=== PATIENT | female | born 1935 | race Caucasian/White ===

== ENCOUNTER 2018-01-09 03:32 | Observation (INO) | payer MEDICARE ==
[2018-01-09] MEDS ORDERED: NITROGLYCERIN SL TABS 0.4 MG TAB SUBLINGUAL PRN (03:35)
[2018-01-09] MEDS ORDERED: HYDROcodone/APAP 5-325MG 1 EACH TAB PO PRN (03:38)
[2018-01-09] MEDS ORDERED: HEPARIN SOD,PORK IN 0.45% NACL 25,000 UNIT in 0.45% NACL 1 500ML.BAG IV SCH (03:45)
[2018-01-09] MEDS ORDERED: NITROGLYCERIN OINT 1 INCH/GM PACKET TOPICAL STA (03:48)
[2018-01-09] MEDS: SODIUM CHLORIDE 0.9% 1,000 ML IV SCH ×3 (03:53→22:16)
[2018-01-09 04:16] LABS: Creatine Kinase 38 U/L (30-135)
[2018-01-09 04:29] LABS: Creatine Kinase MB 0.8 ng/mL (0.0-2.4); Troponin I <0.012 ng/mL (0.000-0.034)
--- NOTE | 2018-01-09 04:38 | ED ---
Chest Pain HPI - General Chief Complaint: Chest Pain Stated Complaint: chest pain Time Seen by Provider: 01/09/18 03:34 Source: patient Mode of arrival: EMS Limitations: no limitations - History of Present Illness Initial Comments: This patient is an 82-year-old woman with history of previous one-vessel CABG, who had gone to [facility] when she developed chest pain. She states pain was substernal and radiated to her back. She described as an aching. The pain was constant though it has resolved in the time she was at the other hospital. She also had some accompanying diaphoresis. While the patient was at the other hospital they contacted the cardiology service who requested that the patient be transferred here for admission and consideration of further evaluation. Review of the patient's labs reveal that she had 2 negative troponins while at the other hospital. MD Complaint: chest pain -: hour(s) Onset: during rest Pain Location: substernal Pain Radiation: back Severity: moderate Quality: tightness Consistency: now resolved Worsens With: nothing Anginal Symptoms: diaphoresis Treatments Prior to Arrival: aspirin, nitroglycerin, oxygen - Related Data Home Medications Medication Instructions Recorded Confirmed L.acidoph/B.long/L.plant/B.lac 1 each PO DAILY 01/23/15 01/24/15 [Probiotic Acidophilus Beads] Levothyroxine Sodium [Levoxyl] 75 mcg PO DAILY 01/23/15 01/24/15 Levothyroxine Sodium [Levoxyl] 88 mcg PO DAILY 01/23/15 01/24/15 Magnesium Oxide [Mag-Ox] 250 mg PO DAILY 01/23/15 01/24/15 Turmeric 400 mg PO DAILY 01/23/15 01/24/15 Calcium Carbonate/Vitamin D3 1 each PO DAILY 01/24/15 01/24/15 [Calcium 600-Vit D3 400 Tablet] Cholecalciferol [Vitamin D3] 1,200 unit PO DAILY 01/24/15 01/24/15 Cholecalciferol [Vitamin D3] 2,000 unit PO DAILY 01/24/15 01/24/15 Cyanocobalamin [Vitamin B-12] 500 mcg PO DAILY 01/24/15 01/24/15 Dicyclomine [Bentyl] 10 mg PO HS 01/24/15 01/24/15 Garlic 1 tab PO BID 01/24/15 01/24/15 Ubidecarenone [Co Q-10] 100 mg PO DAILY 01/24/15 01/24/15 Previous Rx's Medication Instructions Recorded Aspirin EC [Ecotrin Low Dose] 162 mg PO DAILY #60 tablet. 01/28/15 Clopidogrel [Plavix] 75 mg PO DAILY #30 tab 01/28/15 HYDROcodone/APAP 5-325MG [[place] 1 each PO Q4HR PRN #30 tab 01/28/15 5-325] Levothyroxine Sodium [Synthroid] 75 mcg PO Q48H tab 01/28/15 Levothyroxine Sodium [Synthroid] 88 mcg PO Q48H tab 01/28/15 Metoprolol Tartrate [Lopressor] 25 mg PO BID #60 tab 01/28/15 Rosuvastatin Calcium [Crestor] 2.5 mg PO DAILY #30 tablet 01/28/15 Allergies Allergy/AdvReac Type Severity Reaction Status Date / Time meperidine HCl [From Demerol] Allergy Severe Anaphylaxis Verified 01/09/18 03:44 amiodarone Allergy Hallucinati Verified 01/09/18 03:47 ons codeine Allergy Unknown Verified 01/09/18 03:44 metoprolol Allergy Unknown Verified 01/09/18 03:47 omeprazole [From Prilosec] Allergy Abdominal Verified 01/09/18 03:47 Pain Penicillins Allergy Unknown Verified 01/09/18 03:44 pitavastatin [From Livalo] Allergy Abdominal Verified 01/09/18 03:47 Pain propranolol HCl Allergy Unknown Verified 01/09/18 03:44 [From Inderal LA] rosuvastatin [From Crestor] Allergy Abdominal Verified 01/09/18 03:47 Pain tetracycline Allergy Unknown Verified 01/09/18 03:44 Review of Systems ROS Statement: Those systems with pertinent positive or pertinent negative responses have been documented in the HPI. ROS Other: All systems not noted in ROS Statement are negative. Constitutional: Denies: fever, chills Respiratory: Denies: cough, dyspnea Cardiovascular: Reports: chest pain. Denies: palpitations, orthopnea, edema, syncope Gastrointestinal: Denies: abdominal pain, nausea, vomiting, diarrhea Musculoskeletal: Denies: back pain Skin: Denies: rash Neurological: Denies: headache, weakness, numbness EKG Findings - EKG Results: EKG: interpreted by ERMD, sinus rhythm, normal axis, normal QRS - Blocks, [place], Hypertrophy, ST Abn: Repolarization changes or abnormalities: ST or T wave suggestive of ischemia ( Anterior to inversions) Past Medical History Past Medical History: Chest Pain / Angina, GERD/Reflux, Hyperlipidemia, Musculoskeletal Disorder, Osteoarthritis (OA), Thyroid Disorder Additional Past Medical History / Comment(s): IBS, BENIGN POSITIONAL VERTIGO, ARTHRITIS History of Any Multi-Drug Resistant Organisms: None Reported Past Surgical History: No Surgical Hx Reported Additional Past Surgical History / Comment(s): Bilateral breast biopsy 2 in the left side and one on the right side there were benign. Past Anesthesia/Blood Transfusion Reactions: No Reported Reaction Past Psychological History: No Psychological Hx Reported Smoking Status: Never smoker Past Alcohol Use History: Occasional Past Drug Use History: None Reported - Past Family History Father Family Medical History: Coronary Artery Disease (CAD) (Father at age of 65 from myocardial infarction), Myocardial Infarction ([place]) Mother Family Medical History: Cancer (Mother at age of 85 from uterine cancer) Brother(s) Family Medical History: Coronary Artery Disease (CAD), Myocardial Infarction ([place] ) (Patient has 2 brothers with coronary artery disease one of them is a plastic surgeon the other one is an ENT surgeon.) Sister(s) Family Medical History: No Reported History (One sister no major medical problems) General Exam Limitations: no limitations General appearance: alert, in no apparent distress Head exam: Present: atraumatic, normocephalic Eye exam: Present: normal appearance. Absent: scleral icterus, conjunctival injection ENT exam: Present: normal oropharynx Neck exam: Present: normal inspection Respiratory exam: Present: normal lung sounds bilaterally. Absent: respiratory distress, wheezes, rales, rhonchi, stridor GI/Abdominal exam: Present: soft. Absent: distended, tenderness, guarding, rebound, rigid, mass Extremities exam: Present: normal inspection, normal capillary refill. Absent: pedal edema, calf tenderness Back exam: Present: normal inspection. Absent: CVA tenderness (R), CVA tenderness (L) Neurological exam: Present: alert Skin exam: Present: warm, dry, intact, normal color. Absent: rash Course Vital Signs 01/09/18 01/09/18 03:39 04:11 Temperature 98.8 F Pulse Rate 90 Pulse Rate [ 70 [employer] ] Respiratory 18 Rate Blood Pressure 175/90 O2 Sat by Pulse 99 Oximetry Disposition Clinical Impression: Acute coronary syndrome Disposition: ADMITTED IP TO THIS HOSP Condition: Fair Referrals: Brandi Sebastian MD [Primary Care Provider] - 1-2 days
[2018-01-09] MEDS ORDERED: HEPARIN SODIUM,PORCINE 5,000 UNIT/ML 1 ML VIAL IV PRN (06:07)
[2018-01-09] MEDS ORDERED: LEVOTHYROXINE 75 MCG TAB PO SCH (08:45)
[2018-01-09 09:24] LABS: Basophils % (A) 1 %; Eosinophils % (A) 0 %; HCT 34.1 % (34.0-46.0); HGB 11.5 gm/dL (11.4-16.0); Lymphocytes % (A) 22 %; MCH 31.5 pg (25.0-35.0); MCHC 33.6 g/dL (31.0-37.0); MCV 93.5 fL (80.0-100.0); Mean Platelet Volume 7.7; Monocytes # (A) 0.2 k/uL (0-1.0); Monocytes % (A) 5 %; Neutrophils # (A) 3.2 k/uL (1.3-7.7); Neutrophils % (A) 70 %; Platelet Count 259 k/uL (150-450); RBC 3.65 m/uL (3.80-5.40); RDW 13.3 % (11.5-15.5); WBC 4.6 k/uL (3.8-10.6)
[2018-01-09 09:46] LABS: Creatine Kinase 39 U/L (30-135)
[2018-01-09 09:58] LABS: Creatine Kinase MB 0.8 ng/mL (0.0-2.4); Troponin I <0.012 ng/mL (0.000-0.034)
[2018-01-09 10:01] LABS: Calcium 9.2 mg/dL (8.4-10.2); Potassium 3.9 mmol/L (3.5-5.1)
[2018-01-09] MEDS ORDERED: ACETAMINOPHEN TAB 325 MG TAB PO PRN (10:14)
[2018-01-09] MEDS ORDERED: KETOROLAC 30 MG/ML 1 ML VIAL IVP STA (10:28)
--- NOTE | 2018-01-09 11:16 | P.HPIM ---
History of Present Illness H&P Date: 01/09/18 Chief Complaint: Chest pain This is an 82-year-old female patient of Dr. Sebastian with a previous medical history significant for hyperlipidemia, osteoarthritis, non-ST elevated myocardial infarction in January 2015 status post SHABAZZ to LAD with Dr. Granados, hypothyroidism, irritable bowel syndrome, gastritis. Patient states that she will develop chest pain on Wednesday went to [facility] and was worked up and then discharged home. Yesterday, she started having sweats and she was told if she had sweats to go into the hospital. She was at rest watching TV when the sweats started. She presented to [facility]. She also had left-sided chest pain that went to both arms. Her clamminess went away. She also had occasional pain in the back on the left side. She denies any palpitations. Patient is pain-free at this time and is not sure what caused her pain to go away. [employer] was contacted and patient was transferred to [facility] emergency center. She had 2 negative troponins drawn at [facility]. EKG was a sinus rhythm with T-wave changes. Repeat troponins have been negative 2 here. Patient was started on a full aspirin, heparin drip, resumed on statin and placed on the observation unit and cardiology consult requested. Patient is complaining of a headache over her whole head including her ears. We will order 1 dose of Toradol as patient is nothing by mouth. Review of Systems All systems: negative Constitutional: Reports sweats, Denies anorexia, Denies chills, Denies fever, Denies poor appetite, Denies weight loss Eyes: denies blurred vision, denies pain Ears, nose, mouth and throat: Denies headache, Denies sore throat Cardiovascular: Reports chest pain, Denies edema, Denies irregular heart beat, Denies leg edema, Denies lightheadedness, Denies palpitations, Denies shortness of breath, Denies syncope Respiratory: Denies cough, Denies cough with sputum, Denies dyspnea, Denies excessive sputum, Denies hemoptysis, Denies home oxygen, Denies wheezing Gastrointestinal: Denies abdominal pain, Denies diarrhea, Denies loss of appetite, Denies melena, Denies nausea, Denies vomiting Genitourinary: Denies dysuria, Denies hematuria Musculoskeletal: Denies myalgias Integumentary: Denies pruritus, Denies rash Neurological: Denies numbness, Denies weakness Psychiatric: Denies anxiety, Denies depression Endocrine: Denies fatigue, Denies weight change Past Medical History Past Medical History: Chest Pain / Angina, GERD/Reflux, Hyperlipidemia, Musculoskeletal Disorder, Osteoarthritis (OA), Thyroid Disorder Additional Past Medical History / Comment(s): IBS, BENIGN POSITIONAL VERTIGO, hypothyroidism, gastritis, coronary artery disease status post CABG SHABAZZ to LAD. History of Any Multi-Drug Resistant Organisms: None Reported Past Surgical History: Coronary Bypass/CABG, Heart Catheterization Additional Past Surgical History / Comment(s): Bilateral breast biopsy 2 in the left side and one on the right side there were benign., CARDIAC CATH AND CABG IN 01/2015, egd Past Anesthesia/Blood Transfusion Reactions: No Reported Reaction Past Psychological History: No Psychological Hx Reported Smoking Status: Never smoker Past Alcohol Use History: Occasional Additional Past Alcohol Use History / Comment(s): Patient is a lifelong nonsmoker. No illicit drug use. She drinks a glass of wine wine a couple nights a week. Past Drug Use History: None Reported - Past Family History Father Family Medical History: Coronary Artery Disease (CAD), Myocardial Infarction ([place] ) Additional Family Medical History / Comment(s): Father at age 65 from a myocardial infarction. Mother Family Medical History: Cancer Additional Family Medical History / Comment(s): Mother at age 85 from uterine cancer. Brother(s) Family Medical History: Coronary Artery Disease (CAD), Myocardial Infarction ([place] ) Additional Family Medical History / Comment(s): Patient has 2 brothers and one has coronary artery disease and one of them is a plastic surgeon. The other one is an ENT surgeon. Sister(s) Family Medical History: No Reported History Additional Family Medical History / Comment(s): She has one sister with no major medical problems. Medications and Allergies Home Medications Medication Instructions Recorded Confirmed Type L.acidoph/B.long/L.plant/B.lac 1 each PO AC-SUPPER 01/23/15 01/09/18 History [Probiotic Acidophilus Beads] Levothyroxine Sodium [Levoxyl] 75 mcg PO SUTUTHSA 01/23/15 01/09/18 History Magnesium Oxide [Mag-Ox] 250 mg PO AC-SUPPER 01/23/15 01/09/18 History Turmeric 400 mg PO MOWEFR 01/23/15 01/09/18 History Calcium Carbonate/Vitamin D3 1 each PO BID-W/MEALS 01/24/15 01/09/18 History [Calcium 600-Vit D3 400 Tablet] Cholecalciferol [Vitamin D3] 1,000 unit PO AC-BRKFST 01/24/15 01/09/18 History Cholecalciferol [Vitamin D3] 800 unit PO AC-LUNCH 01/24/15 01/09/18 History Cyanocobalamin [Vitamin B-12] 1,000 mcg PO SUMOWEFR 01/24/15 01/09/18 History Garlic 600 mg PO BID 01/24/15 01/09/18 History Ubidecarenone [Co Q-10] 100 mg PO AC-LUNCH 01/24/15 01/09/18 History Acetaminophen Tab [Tylenol Tab] 325 - 650 mg PO Q4H PRN 01/09/18 01/09/18 History Aspirin EC [Ecotrin Low Dose] 88 mg PO BID 01/09/18 01/09/18 History Biotin 300 mcg PO AC-BID 01/09/18 01/09/18 History Cholecalciferol [Vitamin D3] 400 unit PO AC-SUPPER 01/09/18 01/09/18 History Docusate [Colace] 100 mg PO DAILY 01/09/18 01/09/18 History Levothyroxine Sodium [Synthroid] 50 mcg PO MOWEFR 01/09/18 01/09/18 History Loperamide HCl [Imodium A-D] 2 mg PO DAILY PRN 01/09/18 01/09/18 History Rosuvastatin Calcium [Crestor] 5 mg PO SUMOWEFR 01/09/18 01/09/18 History Vitamin C/Biotin [Hair, Skin and 1 tab PO DAILY 01/09/18 01/09/18 History Nails] Allergies Allergy/AdvReac Type Severity Reaction Status Date / Time meperidine HCl [From Demerol] Allergy Severe Anaphylaxis Verified 01/09/18 10:59 amiodarone Allergy Hallucinati Verified 01/09/18 10:59 ons codeine Allergy Unknown Verified 01/09/18 10:59 lansoprazole Allergy Unknown Verified 01/09/18 10:59 metoprolol Allergy Unknown Verified 01/09/18 10:59 omeprazole [From Prilosec] Allergy Abdominal Verified 01/09/18 10:59 Pain Penicillins Allergy Unknown Verified 01/09/18 10:59 pitavastatin [From Livalo] Allergy Abdominal Verified 01/09/18 10:59 Pain propranolol HCl Allergy Unknown Verified 01/09/18 10:59 [From Inderal LA] rosuvastatin [From Crestor] Allergy Abdominal Verified 01/09/18 10:59 Pain sucralfate Allergy Unknown Verified 01/09/18 10:59 tetracycline Allergy Unknown Verified 01/09/18 10:59 Physical Exam Vitals: Vital Signs Temp Pulse Pulse Resp BP Pulse Ox 01/09/18 07:51 18 01/09/18 05:42 18 01/09/18 04:42 98.1 F 68 15 134/68 100 01/09/18 04:38 70 18 134/43 100 01/09/18 04:11 70 01/09/18 03:39 98.8 F 90 18 175/90 99 Intake and Output 01/08/18 01/09/18 01/09/18 22:59 06:59 14:59 Other: Voiding Method Toilet Toilet Weight 45.359 kg Patient is sitting up in bed in no apparent distress. HEENT: Head is atraumatic, normocephalic, pupils were equal round sclera nonicteric conjunctiva not pale mucous membranes of the mouth are somewhat dry. Neck: Supple, no JVP, no lymphadenopathy, no thyromegaly. Chest: Clear to auscultation bilaterally there is no crackles or wheezes no chest wall tenderness no intercostal retraction. Heart: First heart sound is normal, second heart sound is normal, there is systolic ejection murmur 2/6 located at the left sternal border. Abdomen: Soft, nontender, positive bowel sounds, no hepatosplenomegaly. Extremities: No edema , no calf tenderness, dorsalis pedis +2 bilaterally. Neurologic examination: Awake alert and oriented 3, cranial nerves II-12 appear to be grossly intact. Deep tendon reflexes were normal, Babinski's were flexor bilaterally. Muscle power 5 out of 5 in upper and lower extremities bilaterally. Results CBC & Chem 7: 01/09/18 09:10 01/09/18 09:10 Thrombosis Risk Factor Assmnt - DVT/VTE Prophylaxis DVT/VTE Prophylaxis: Pharmacologic Prophylaxis ordered - Choose All That Apply Each Factor Represents 1 point: Hx of IBD Other Risk Factors: Yes Each Risk Factor Represents 3 Points: Age 75 years or older Other congenital or acquired thrombophilia - If yes, enter type in comment: No Thrombosis Risk Factor Assessment Total Risk Factor Score: 4 Thrombosis Risk Factor Assessment Level: Moderate Risk Assessment and Plan Plan: 1. Chest pain in a patient with previous non-ST elevated myocardial infarction with CABG 1 vessel. Currently all troponins of been negative. Patient is on heparin drip, full strength aspirin, Lipitor. Consult in place with cardiology. Patient is nothing by mouth for any procedure. 2. Hyperlipidemia. Continue Lipitor. 3. History of gastritis. Protonix. 4. Osteoarthritis mild in both hands. 5. Irritable bowel syndrome stable at this time. 6. Benign positional proximal vertigo in remission. 7. Hypothyroidism. Continue current dose of Synthroidy. 8. GI prophylaxis will continue with current PPI. 9. DVT prophylaxis. Patient is on heparin Patient placed as observation status Discharge plan: Return home Impression and plan of care have been directed as dictated by the signing physician. Shelby Pearson nurse practitioner acting as scribe for signing physician.
--- NOTE | 2018-01-09 11:20 | P.CRDCN ---
History of Present Illness Consult date: 01/09/18 Chief complaint: Chest pain History of present illness: This is a pleasant 82-year-old female patient with a past medical history significant for coronary artery disease and status post coronary artery that is grafting with single vessel bypass with SHABAZZ to LAD was performed in 2014, as well as dyslipidemia, presented to the hospital complaining of chest discomfort. The patient presented to the emergency room at [facility] about a week ago with a chest discomfort and she was treated medically and was discharged home. She came back again to the emergency room over there with a chest discomfort. She describes the discomfort as a dull kind of discomfort in the mid of the chest without any radiation to the arm or neck or shoulders but it was associated with sweating. She stated that the discomfort is not exertional. Its oh variable duration last from a few minutes to about half an hour. The EKG showed sinus rhythm with T-wave inversion throughout the chest leads but these changes seems to be chronic compared to an EKG was performed in 2014. The cardiac enzymes were checked and came in to be unremarkable. The patient continues to be pain-free while she is in the hospital. Past Medical History Past Medical History: Chest Pain / Angina, GERD/Reflux, Hyperlipidemia, Musculoskeletal Disorder, Osteoarthritis (OA), Thyroid Disorder Additional Past Medical History / Comment(s): IBS, BENIGN POSITIONAL VERTIGO, hypothyroidism, gastritis, coronary artery disease status post CABG SHABAZZ to LAD. History of Any Multi-Drug Resistant Organisms: None Reported Past Surgical History: Coronary Bypass/CABG, Heart Catheterization Additional Past Surgical History / Comment(s): Bilateral breast biopsy 2 in the left side and one on the right side there were benign., CARDIAC CATH AND CABG IN 01/2015, egd Past Anesthesia/Blood Transfusion Reactions: No Reported Reaction Past Psychological History: No Psychological Hx Reported Smoking Status: Never smoker Past Alcohol Use History: Occasional Additional Past Alcohol Use History / Comment(s): Patient is a lifelong nonsmoker. No illicit drug use. She drinks a glass of wine wine a couple nights a week. Past Drug Use History: None Reported - Past Family History Father Family Medical History: Coronary Artery Disease (CAD), Myocardial Infarction ([place] ) Additional Family Medical History / Comment(s): Father at age 65 from a myocardial infarction. Mother Family Medical History: Cancer Additional Family Medical History / Comment(s): Mother at age 85 from uterine cancer. Brother(s) Family Medical History: Coronary Artery Disease (CAD), Myocardial Infarction (LA ) Additional Family Medical History / Comment(s): Patient has 2 brothers and one has coronary artery disease and one of them is a plastic surgeon. The other one is an ENT surgeon. Sister(s) Family Medical History: No Reported History Additional Family Medical History / Comment(s): She has one sister with no major medical problems. Medications and Allergies Home Medications Medication Instructions Recorded Confirmed Type L.acidoph/B.long/L.plant/B.lac 1 cap PO AC-SUPPER 01/23/15 01/09/18 History [Probiotic Acidophilus Beads] Levothyroxine Sodium [Levoxyl] 75 mcg PO SUTUTHSA 01/23/15 01/09/18 History Magnesium Oxide [Mag-Ox] 250 mg PO AC-SUPPER 01/23/15 01/09/18 History Turmeric 400 mg PO MOWEFR 01/23/15 01/09/18 History Calcium Carbonate/Vitamin D3 1 tab PO BID-W/MEALS 01/24/15 01/09/18 History [Calcium 600-Vit D3 400 Tablet] Cholecalciferol [Vitamin D3] 1,000 unit PO AC-BRKFST 01/24/15 01/09/18 History Cholecalciferol [Vitamin D3] 800 unit PO AC-LUNCH 01/24/15 01/09/18 History Cyanocobalamin [Vitamin B-12] 1,000 mcg PO SUMOWEFR 01/24/15 01/09/18 History Garlic 1 tab PO BID 01/24/15 01/09/18 History Ubidecarenone [Co Q-10] 100 mg PO AC-LUNCH 01/24/15 01/09/18 History Acetaminophen Tab [Tylenol Tab] 325 - 650 mg PO Q4H PRN 01/09/18 01/09/18 History Aspirin EC [Ecotrin Low Dose] 81 mg PO BID 01/09/18 01/09/18 History Biotin 300 mcg PO AC-BID 01/09/18 01/09/18 History Cholecalciferol [Vitamin D3] 400 unit PO AC-SUPPER 01/09/18 01/09/18 History Docusate [Colace] 100 mg PO DAILY 01/09/18 01/09/18 History Levothyroxine Sodium [Synthroid] 50 mcg PO MOWEFR 01/09/18 01/09/18 History Loperamide HCl [Imodium A-D] 2 mg PO DAILY PRN 01/09/18 01/09/18 History Rosuvastatin Calcium [Crestor] 5 mg PO SUMOWEFR 01/09/18 01/09/18 History Vitamin C/Biotin [Hair, Skin and 1 tab PO DAILY 01/09/18 01/09/18 History Nails] Allergies Allergy/AdvReac Type Severity Reaction Status Date / Time meperidine HCl [From Demerol] Allergy Severe Anaphylaxis Verified 01/09/18 10:59 amiodarone Allergy Hallucinati Verified 01/09/18 10:59 ons codeine Allergy Unknown Verified 01/09/18 10:59 lansoprazole Allergy Unknown Verified 01/09/18 10:59 metoprolol Allergy Unknown Verified 01/09/18 10:59 omeprazole [From Prilosec] Allergy Abdominal Verified 01/09/18 10:59 Pain Penicillins Allergy Unknown Verified 01/09/18 10:59 pitavastatin [From Livalo] Allergy Abdominal Verified 01/09/18 10:59 Pain propranolol HCl Allergy Unknown Verified 01/09/18 10:59 [From Inderal [place]] rosuvastatin [From Crestor] Allergy Abdominal Verified 01/09/18 10:59 Pain sucralfate Allergy Unknown Verified 01/09/18 10:59 tetracycline Allergy Unknown Verified 01/09/18 10:59 Physical Exam Vitals: Vital Signs Temp Pulse Pulse Pulse Resp BP BP 01/09/18 08:00 97.9 F 67 14 121/64 01/09/18 07:51 18 01/09/18 05:42 18 01/09/18 04:42 98.1 F 68 15 134/68 01/09/18 04:38 70 18 134/43 01/09/18 04:11 70 01/09/18 03:39 98.8 F 90 18 175/90 Pulse Ox 01/09/18 08:00 97 01/09/18 07:51 01/09/18 05:42 01/09/18 04:42 100 01/09/18 04:38 100 01/09/18 04:11 01/09/18 03:39 99 Intake and Output 01/08/18 01/09/18 01/09/18 22:59 06:59 14:59 Other: Voiding Method Toilet Toilet Weight 45.359 kg - Constitutional General appearance: no acute distress - Respiratory Respiratory: bilateral: CTA - Cardiovascular Rhythm: regular Heart sounds: normal: S1, S2 Results 01/09/18 09:10 01/09/18 09:10 Cardiac Enzymes 01/09/18 01/09/18 Range/Units 03:45 09:10 CK-MB (CK-2) 0.8 0.8 (0.0-2.4) ng/mL Troponin I <0.012 <0.012 (0.000-0.034) ng/mL Coagulation 01/09/18 Range/Units 09:10 APTT 38.9 H (22.0-30.0) sec CBC 01/09/18 Range/Units 09:10 WBC 4.6 (3.8-10.6) k/uL RBC 3.65 L (3.80-5.40) m/uL Hgb 11.5 (11.4-16.0) gm/dL Hct 34.1 (34.0-46.0) % Plt Count 259 (150-450) k/uL Comprehensive Metabolic Panel 01/09/18 Range/Units 09:10 Sodium 144 (137-145) mmol/L Potassium 3.9 (3.5-5.1) mmol/L Chloride 108 H (98-107) mmol/L Carbon Dioxide 25 (22-30) mmol/L BUN 19 H (7-17) mg/dL Creatinine 0.76 (0.52-1.04) mg/dL Glucose 99 (74-99) mg/dL Calcium 9.2 (8.4-10.2) mg/dL Current Medications Generic Name Dose Route Start Last Admin Trade Name Freq PRN Reason Stop Dose Admin Acetaminophen 650 mg 01/09/18 10:14 Tylenol Tab PO Q4HR PRN Fever and/ or Pain Hydrocodone Bitart/Acetaminophen 1 each 01/09/18 03:38 [place] 5-325 PO Q4HR PRN Pain Scale 1 to 5 Aspirin 325 mg 01/10/18 09:00 Aspirin PO DAILY COUNT INCLUDES THE [facility] Atenolol 12.5 mg 01/10/18 09:00 Tenormin PO DAILY COUNT INCLUDES THE [facility] Atorvastatin Calcium 10 mg 01/09/18 21:00 Lipitor PO SuMoWeFr@2100 COUNT INCLUDES THE [facility] Calcium Carbonate 1 each 01/09/18 09:00 Oscal 500+D PO DAILY COUNT INCLUDES THE [facility] Cholecalciferol 1,200 unit 01/09/18 09:00 Vitamin D3 PO DAILY JAIME Cholecalciferol 2,000 unit 01/09/18 09:00 Vitamin D3 PO DAILY COUNT INCLUDES THE [facility] Clopidogrel Bisulfate 75 mg 01/09/18 09:00 Plavix PO DAILY COUNT INCLUDES THE [facility] Cyanocobalamin 500 mcg 01/09/18 09:00 Vitamin B-12 PO DAILY COUNT INCLUDES THE [facility] Dicyclomine HCl 10 mg 01/09/18 21:00 Bentyl PO HS JAIME Heparin Sodium (Porcine) 0 unit 01/09/18 06:07 Heparin IV PER PROTOCOL PRN Low PTT Protocol Sodium Chloride 1,000 mls @ 100 mls/hr 01/09/18 03:45 01/09/18 03:53 Saline 0.9% IV 100 mls/hr .Q10H JAIME Administration Lactobacillus Acidoph/Bulgaricus 1 each 01/09/18 17:30 Lactinex PO AC-SUPPER COUNT INCLUDES THE [facility] Levothyroxine Sodium 75 mcg 01/09/18 08:45 Synthroid PO SuTuThSa@0630 JAIME Levothyroxine Sodium 50 mcg 01/10/18 06:30 Synthroid PO MoWeFr@0630 JAIME Magnesium Oxide 400 mg 01/09/18 17:30 Mag-Ox PO AC-SUPPER COUNT INCLUDES THE [facility] Nitroglycerin 0.4 mg 01/09/18 03:35 Nitrostat SUBLINGUAL Q5M PRN Chest Pain Intake and Output 01/08/18 01/09/18 01/09/18 22:59 06:59 14:59 Other: Voiding Method Toilet Toilet Weight 45.359 kg 01/09/18 09:10 01/09/18 09:10 Assessment and Plan Assessment: Assessment #1 intermittent episodes of chest discomfort #2 CAD and status post coronary artery bypass grafting with SHABAZZ to LAD #3 dyslipidemia Plan #1 I am going to add beta mima to the current medical regimen. She is ALLERGIC to metoprolol and I would add atenolol. #2 add oral nitrates as well to the current medical treatment #3 continue the aspirin and statin #4 obtain the previous medical records from the office and further recommendation to follow that. Thank you for allowing us but spitting her care and we'll continue following up with her.
[2018-01-09] MEDS: CYANOCOBALAMIN 500 MCG TAB PO SCH (11:53)
[2018-01-09] MEDS: CHOLECALCIFEROL 400 UNIT TAB PO SCH (11:53)
[2018-01-09] MEDS: CALCIUM CARB-VIT D 500MG-200UN 1 EACH TAB PO SCH (11:53)
[2018-01-09] MEDS: CLOPIDOGREL 75 MG TAB PO SCH (11:53)
[2018-01-09] MEDS: CHOLECALCIFEROL 1,000 UNIT TAB PO SCH (11:56)
[2018-01-09] MEDS ORDERED: LACTOBACILLUS ACIDOPH & BULGAR 1 EACH PACKET PO SCH (17:30)
[2018-01-09] MEDS ORDERED: MAGNESIUM OXIDE 400 MG TAB PO SCH (17:30)
[2018-01-09] MEDS ORDERED: ATORVASTATIN 10 MG TAB PO SCH (21:00)
[2018-01-09] MEDS ORDERED: DICYCLOMINE 10 MG CAP PO SCH (21:00)
[2018-01-10 03:59] LABS: Cholesterol 170 mg/dL (<200); HDL Cholesterol 91 mg/dL (40-60); LDL Cholesterol,Calculated 68 mg/dL (0-99); Triglycerides 56 mg/dL (<150)
[2018-01-10] MEDS ORDERED: LEVOTHYROXINE 50 MCG TAB PO SCH (06:30)
[2018-01-10 07:37] VITALS: RESP 18
[2018-01-10] MEDS ORDERED: AMINOPHYLLINE 500 MG/20 ML VIAL IV PRN (08:56)
[2018-01-10] MEDS ORDERED: REGADENOSON 0.4 MG/5 ML SYRINGE IV ONE (08:56)
[2018-01-10] MEDS ORDERED: ATENOLOL 12.5 MG TAB PO SCH (09:00)
[2018-01-10] MEDS ORDERED: ASPIRIN 325 MG TAB PO SCH (09:00)
[2018-01-10] MEDS ORDERED: ISOSORBIDE MONONITRATE ER 30 MG TAB.ER.24H PO SCH (09:00)
[2018-01-10] MEDS ORDERED: AMINOPHYLLINE 500 MG/20 ML VIAL IV ONE (10:45)
[2018-01-10] MEDS: CALCIUM CARB-VIT D 500MG-200UN 1 EACH TAB PO SCH (11:31)
[2018-01-10] MEDS: CHOLECALCIFEROL 400 UNIT TAB PO SCH (11:31)
[2018-01-10] MEDS: SODIUM CHLORIDE 0.9% 1,000 ML IV SCH (11:32)
[2018-01-10] MEDS: CLOPIDOGREL 75 MG TAB PO SCH (11:32)
[2018-01-10] MEDS: CYANOCOBALAMIN 500 MCG TAB PO SCH (11:32)
[2018-01-10] MEDS: CHOLECALCIFEROL 1,000 UNIT TAB PO SCH (11:32)
[2018-01-10 11:41] VITALS: BP 146/74; TEMP 98
--- NOTE | 2018-01-10 11:41 | NM ---
EXAMINATION TYPE: NM stress lexiscan cardiolite DATE OF EXAM: 01/10/2018 COMPARISON: NONE HISTORY: Precordial chest pain and abnormal EKG. TECHNIQUE: After the intravenous administration of 10.2 mCi Tc 99m Sestamibi - Cardiolite resting SP ECT images acquired 50 minutes post injection. The patient received 0.4mg Lexiscan, 25 mCi Tc 99m Sestamibi - Stress images obtained 30 minutes post injection FINDINGS: Review of stress and rest SPECT images demonstrates no distinct perfusion abnormality. Gated analysi s shows normal wall motion with an estimated left ventricular ejection fraction of 69 %. IMPRESSION: No scintigraphic evidence for reversible ischemia.
[2018-01-10 12:31] VITALS: PULSE 86
[2018-01-10 13:38] VITALS: BMI 17.2
--- NOTE | 2018-01-10 13:52 | P.DS ---
Providers Date of admission: 01/09/18 03:35 Expected date of discharge: 01/10/18 Attending physician: Brandi Sebastian Consults: 01/09/18 03:35 Consult Physician Routine Consulting Provider: Tejas Triana Consult Reason/Comments: Chest pain Do you want consulting provider notified?: Yes Primary care physician: Brandi Sebastian [facility] Course: This is an 82-year-old female patient of Dr. Sebastian with a previous medical history significant for hyperlipidemia, osteoarthritis, non-ST elevated myocardial infarction in January 2015 status post SHABAZZ to LAD with Dr. Granados, hypothyroidism, irritable bowel syndrome, gastritis. Patient states that she will develop chest pain on Wednesday went to [facility] and was worked up and then discharged home. Yesterday, she started having sweats and she was told if she had sweats to go into the hospital. She was at rest watching TV when the sweats started. She presented to [facility]. She also had left-sided chest pain that went to both arms. Her clamminess went away. She also had occasional pain in the back on the left side. She denies any palpitations. Patient is pain-free at this time and is not sure what caused her pain to go away. [employer] was contacted and patient was transferred to [facility] emergency center. She had 2 negative troponins drawn at [facility]. EKG was a sinus rhythm with T-wave changes. Repeat troponins have been negative 2 here. Patient was started on a full aspirin, heparin drip, resumed on statin and placed on the observation unit and cardiology consult requested. Patient is complaining of a headache over her whole head including her ears. We will order 1 dose of Toradol as patient is nothing by mouth. 01/10: Patient has been seen by Dr. Triana, cardiology, and scheduled for Lexiscan stress test which came back negative. Patient remains chest pain-free. Blood pressure is stable. Patient will be discharged home today in stable condition. Discharge diagnoses: 1. Chest pain in a patient with previous non-ST elevated myocardial infarction with CABG 1 vessel. 2. Hyperlipidemia. 3. History of gastritis. 4. Osteoarthritis mild in both hands. 5. Irritable bowel syndrome stable at this time. 6. Benign positional proximal vertigo in remission. 7. Hypothyroidism. Discharge plan: Return home Impression and plan of care have been directed as dictated by the signing physician. Shelby Pearson nurse practitioner acting as scribe for signing physician. Patient Condition at Discharge: Good Plan - Discharge Summary Discharge Rx Participant: No New Discharge Prescriptions: New Atenolol [Tenormin] 12.5 mg PO DAILY #30 dose Isosorbide Mononitrate ER [Imdur] 30 mg PO DAILY #30 tab.er.24h Nitroglycerin Sl Tabs [Nitrostat] 0.4 mg SUBLINGUAL Q5M PRN #25 tab PRN Reason: Chest Pain Continue Magnesium Oxide [Mag-Ox] 250 mg PO AC-SUPPER Levothyroxine Sodium [Levoxyl] 75 mcg PO SUTUTHSA L.acidoph/B.long/L.plant/B.lac [Probiotic Acidophilus Beads] 1 cap PO AC- SUPPER Turmeric 400 mg PO MOWEFR Ubidecarenone [Co Q-10] 100 mg PO AC-LUNCH Garlic 1 tab PO BID Cholecalciferol [Vitamin D3] 800 unit PO AC-LUNCH Cholecalciferol [Vitamin D3] 1,000 unit PO AC-BRKFST Cyanocobalamin [Vitamin B-12] 1,000 mcg PO SUMOWEFR Calcium Carbonate/Vitamin D3 [Calcium 600-Vit D3 400 Tablet] 1 tab PO BID-W/ MEALS Levothyroxine Sodium [Synthroid] 50 mcg PO MOWEFR Rosuvastatin Calcium [Crestor] 5 mg PO SUMOWEFR Aspirin EC [Ecotrin Low Dose] 81 mg PO BID Cholecalciferol [Vitamin D3] 400 unit PO AC-SUPPER Biotin 300 mcg PO AC-BID Loperamide HCl [Imodium A-D] 2 mg PO DAILY PRN PRN Reason: Constipation Docusate [Colace] 100 mg PO DAILY Acetaminophen Tab [Tylenol] 325 - 650 mg PO Q4H PRN PRN Reason: Pain Or Fever > 100.5 Vitamin C/Biotin [Hair, Skin and Nails] 1 tab PO DAILY Discharge Medication List L.acidoph/B.long/L.plant/B.lac [Probiotic Acidophilus Beads] 1 cap PO AC-SUPPER 01/23/15 [History] Levothyroxine Sodium [Levoxyl] 75 mcg PO SUTUTHSA 01/23/15 [History] Magnesium Oxide [Mag-Ox] 250 mg PO AC-SUPPER 01/23/15 [History] Turmeric 400 mg PO MOWEFR 01/23/15 [History] Calcium Carbonate/Vitamin D3 [Calcium 600-Vit D3 400 Tablet] 1 tab PO BID-W/ MEALS 01/24/15 [History] Cholecalciferol [Vitamin D3] 1,000 unit PO AC-BRKFST 01/24/15 [History] Cholecalciferol [Vitamin D3] 800 unit PO AC-LUNCH 01/24/15 [History] Cyanocobalamin [Vitamin B-12] 1,000 mcg PO SUMOWEFR 01/24/15 [History] Garlic 1 tab PO BID 01/24/15 [History] Ubidecarenone [Co Q-10] 100 mg PO AC-LUNCH 01/24/15 [History] Acetaminophen Tab [Tylenol] 325 - 650 mg PO Q4H PRN 01/09/18 [History] Aspirin EC [Ecotrin Low Dose] 81 mg PO BID 01/09/18 [History] Biotin 300 mcg PO AC-BID 01/09/18 [History] Cholecalciferol [Vitamin D3] 400 unit PO AC-SUPPER 01/09/18 [History] Docusate [Colace] 100 mg PO DAILY 01/09/18 [History] Levothyroxine Sodium [Synthroid] 50 mcg PO MOWEFR 01/09/18 [History] Loperamide HCl [Imodium A-D] 2 mg PO DAILY PRN 01/09/18 [History] Rosuvastatin Calcium [Crestor] 5 mg PO SUMOWEFR 01/09/18 [History] Vitamin C/Biotin [Hair, Skin and Nails] 1 tab PO DAILY 01/09/18 [History] Atenolol [Tenormin] 12.5 mg PO DAILY #30 dose 01/10/18 [Rx] Isosorbide Mononitrate ER [Imdur] 30 mg PO DAILY #30 tab.er.24h 01/10/18 [Rx] Nitroglycerin Sl Tabs [Nitrostat] 0.4 mg SUBLINGUAL Q5M PRN #25 tab 01/10/18 [Rx ] Follow up Appointment(s)/Referral(s): [facility] [Provider Group] - 1 Week Brandi Sebastian MD [Primary Care Provider] - 1 Week Discharge Disposition: HOME SELF-CARE
--- NOTE | 2018-01-10 19:35 | EST ---
EXERCISE STRESS AGE: 82 SEX: Female. HT: 64" WT: 100 pounds PROTOCOL: Lexiscan Cardiolite STAGE: DURATION OF EXERCISE: HEART RATE REST: 66 BLOOD PRESSURE REST: 161/77 MAXIMUM HEART RATE ACHIEVED: 112 MAXIMUM BLOOD PRESSURE: 172/79 85% MPHR: 117 100% MPHR: 138 METS: INDICATIONS: Chest pain. CLINICAL INFORMATION: Patient complained of chest pain, known coronary artery disease. Baseline heart rate 66 beats per minute. Baseline blood pressure 161/77 mmHg. Baseline 12-lead ECG showed normal sinus rhythm with diffusely inverted T-waves. Patient received Lexiscan infusion per protocol. She complained of chest pain through the procedure. There was a 0.[address] depression with T-wave inversions inferolaterally. No arrhythmias were noted. Nuclear portion of the stress test report will be reported separately. IMPRESSION: Abnormal ECG at baseline. No definite evidence of ischemia during Lexiscan infusion. She did complain of chest discomfort. Nuclear portion of the stress test report will be reported separately. Heart rate and blood pressure remained stable. MMODL / IJN: [id number] /
== END 2018-01-10 15:20 | disposition home or self-care (01) ==
LOC: EC 03:32 → 3OBS 03:35 → 3SUR 09:39 → 3OBS 18:00
PROVIDERS: ADMIT Family Medicine; ATTEND Family Medicine
DX: R07.89 Other chest pain (principal); R51 Headache; R07.2 Precordial pain; R61 Generalized hyperhidrosis; K21.9 Gastro-esophageal reflux disease without esophagitis; E78.5 Hyperlipidemia, unspecified; H81.10 Benign paroxysmal vertigo, unspecified ear; E03.9 Hypothyroidism, unspecified; K29.70 Gastritis, unspecified, without bleeding; I25.2 Old myocardial infarction; M54.9 Dorsalgia, unspecified; M19.042 Primary osteoarthritis, left hand; M19.041 Primary osteoarthritis, right hand; K58.9 Irritable bowel syndrome, unspecified; Z95.1 Presence of aortocoronary bypass graft; Z79.890 Hormone replacement therapy; Z79.899 Other long term (current) drug therapy; Z79.82 Long term (current) use of aspirin; Z88.1 Allergy status to other antibiotic agents; Z88.5 Allergy status to narcotic agent; Z88.0 Allergy status to penicillin; Z88.8 Allergy status to other drugs, medicaments and biological substances; Z80.49 Family history of malignant neoplasm of other genital organs; I25.10 Atherosclerotic heart disease of native coronary artery without angina pectoris
CPT/HCPCS: 36415; 78452; 80048; 80061; 82550; 82553; 84484; 85025; 85730; 93005; 93017; 96365; 96366; 99285

== ENCOUNTER → 2019-04-12 | Outpatient (CLI) | payer MEDICARE ==
--- NOTE | 2019-05-19 17:02 | EM ---
EVENT MONITOR Thirty-day event monitor showed: 1. Sinus mechanism. 2. Sinus tachycardia. 3. Short and long runs of non-sustained atrial tachycardia with RVR. No pauses. Very occasional PVCs. No atrial fibrillation. MMODL / IJN: [id number] /
== END | disposition home or self-care (01) ==
LOC: RADECHMAIN 11:40
PROVIDERS: ATTEND Family Medicine
DX: I47.1 Supraventricular tachycardia (principal)
CPT/HCPCS: 93270

== ENCOUNTER → 2019-11-29 | Day surgery (SDC) | payer MEDICARE ==
[2019-11-23 10:33] VITALS: BMI 16.0
[~2019-11-29] MED LIST: ALPRAZolam 0.25 MG TAB PO PRN; ALPRAZolam 0.5 MG TAB PO PRN; ASPIRIN 325 MG TAB PO STA; ASPIRIN 81 MG PO SCH; ATORVASTATIN 10 MG TAB PO SCH; CHOLECALCIFEROL 1,000 UNIT TAB PO SCH; CYANOCOBALAMIN 500 MCG TAB PO SCH; HEPARIN SODIUM 1,000 UN/ML (10ML VL) ONE; IOPAMIDOL-370 125ML BTL INJ ONE; LEVOTHYROXINE 50 MCG TAB PO SCH; LIDOCAINE 1% INJ 10MG/ML (20 ML MDV) ONE; LIDOCAINE 1% INJ 10MG/ML (20 ML MDV) SQ ONE; LIOTHYRONINE SODIUM 5 MCG TAB PO SCH; NITROGLYCERIN SL TABS 0.4 MG TAB SUBLINGUAL ONE; NITROGLYCERIN SL TABS 0.4 MG TAB SUBLINGUAL PRN; RX INFO: IV CONTRAST WAS GIVEN 1 EACH MISC MISCELLANE PRN; SODIUM CHLORIDE 0.9% 1,000 ML IV SCH; SODIUM CHLORIDE 0.9% 1,000 ML in EMPTY BAG 1 BAG IV ONE; VERAPAMIL 2.5 MG/ML 2 ML AMP ONE; fentaNYL (PF) 50 MCG/ML 2 ML AMP IV ONE; fentaNYL (PF) 50 MCG/ML 2 ML AMP ONE
[2019-11-29 06:27] VITALS: RESP 18; TEMP 97.8
--- NOTE | 2019-11-29 08:34 | CC ---
CARDIAC CATHETERIZATION REPORT Mrs. Chase is an 84-year-old female with a known history of coronary artery disease, status post coronary artery bypass grafting in 2015, who presented with symptoms of chest discomfort and abnormal myocardial perfusion imaging. In view of that, recommendation made regarding cardiac catheterization. The procedures, risks, and complications were discussed with the patient who is in full understanding and agreement. 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 Using Xylocaine anesthesia and Seldinger technique, a 6-Indonesian sheath was introduced in the right femoral artery. Selective right and left coronary angiography performed using 6-Indonesian 4 bend, right and left Martha catheter. Multiple views of the coronary artery, including hemiaxial views were obtained. Following that, a 5-Indonesian Tapia catheter was used to cannulate the left subclavian and using a guidewire exchange technique, the catheter was exchanged to a 6-Indonesian IM catheter. Images of the left anterior mammary artery were obtained. Following that, catheter and sheaths were removed. Hemostasis was obtained and deployment of an Angio-Seal, there was no immediate complication. Patient is returned to her room in stable condition. There was no immediate complication. FINDINGS: LEFT MAIN: This is a large-sized vessel, bifurcating into left circumflex, left anterior descending artery left main coronary artery has no evidence of obstructive coronary artery disease. LEFT ANTERIOR DESCENDING ARTERY: This vessel is totally occluded proximally with no significant antegrade flow. LEFT CIRCUMFLEX: This is a nondominant, large-size size vessel, giving rise to 2 obtuse marginal branch. The left circumflex as well as it branches have no evidence of obstructive coronary artery disease. RIGHT CORONARY ARTERY: This is a large dominant vessel, bifurcating distally into PDA and posterolateral segment and branches. The right coronary artery in mid segment has a 20% to 30% plaque with no evidence of high-grade stenosis. SHABAZZ TO THE LAD: SHABAZZ to the LAD is patent. The distal anastomotic site is patent. The flow into the SHABAZZ is brisk. The LAD has no evidence of high-grade stenosis. LEFT VENTRICULOGRAM: Left ventriculogram was not performed. CONCLUSION: 1. Chronically occluded proximal LAD. 2. Mild disease in the right coronary artery. 3. Patent SHABAZZ to LAD. RECOMMENDATION: In view of finding anatomy, I would recommend continue medical therapy with aggressive coronary risk modifications being initiated. Those findings and recommendation were discussed with the patient and her family and they are in full understanding and agreement. Duration of procedure 30 minutes. JUAN MANUEL / AL: [id number] /
--- NOTE | 2019-11-29 08:40 | LTR ---
DATE OF SERVICE: 11/29/2019 RE: RenaShweta Dear Dr. Sebastian; I had the pleasure to perform cardiac catheterization on Mrs. Chase at [facility] on November 29, 2019 and a full copy of the procedure note will be forwarded to you. In brief, she was found to have chronically occluded LAD with patent SHABAZZ to the LAD and mild obstructive disease in the right coronary artery and based on those findings, I recommend continuing medical therapy with aggressive coronary risk modification that has been initiated. Thank you again for allowing me to participate in this patient's care. Please feel free to call for any questions. Sincerely yours, MD JUAN MANUEL Reid / ROMANN: [id number] /
[2019-11-29 13:43] VITALS: BP 158/68; PULSE 72
== END | disposition home or self-care (01) ==
LOC: CATHCVL 05:34
PROVIDERS: ATTEND Internal Medicine Interventional Cardiology
DX: I25.10 Atherosclerotic heart disease of native coronary artery without angina pectoris (principal); I25.82 Chronic total occlusion of coronary artery; Z95.1 Presence of aortocoronary bypass graft; E78.2 Mixed hyperlipidemia; E78.00 Pure hypercholesterolemia, unspecified; R94.39 Abnormal result of other cardiovascular function study; Z79.82 Long term (current) use of aspirin; Z79.890 Hormone replacement therapy; Z79.899 Other long term (current) drug therapy; Z88.1 Allergy status to other antibiotic agents; Z88.5 Allergy status to narcotic agent; Z88.0 Allergy status to penicillin; Z88.8 Allergy status to other drugs, medicaments and biological substances
CPT/HCPCS: 93455; C1760; C1769 ×2; C1894; J2001; J3010; Q9967

== ENCOUNTER 2020-05-18 08:02 | Emergency (ER) | payer MEDICARE ==
[2020-05-18 08:08] VITALS: TEMP 98.7
[2020-05-18] MEDS ORDERED: MORPHINE SULFATE 4 MG/ML SYRINGE IM STA (08:13)
[2020-05-18] MEDS ORDERED: ORPHENADRINE 30 MG/ML 2 ML VIAL IM STA (08:13)
--- NOTE | 2020-05-18 08:17 | ED ---
Back Pain HPI - General Chief Complaint: Back Pain/Injury Stated Complaint: Back Pain Time Seen by Provider: 05/18/20 08:03 Source: EMS, RN notes reviewed, old records reviewed Limitations: no limitations - History of Present Illness Initial Comments: Patient is an 84-year-old female presents return today with lumbar thoracic back pain. Symptoms started after lifting boxes while per parent for a garage sale yesterday. Patient states that she twisted and felt a pop in her back. She reports it took for 30 minutes to get out of bed this morning. Patient states she's had no fevers or chills. Denies any radiating pain down her legs. She denies any other symptoms - Related Data Home Medications Medication Instructions Recorded Confirmed L.acidoph/B.long/L.plant/B.lac 1 cap PO AC-SUPPER 01/23/15 11/23/19 [Probiotic Acidophilus Beads] Magnesium Oxide [Mag-Ox] 250 mg PO AC-SUPPER 01/23/15 11/23/19 Turmeric/Turmeric Root Extract 1 each PO DAILY #0 01/23/15 11/23/19 [Turmeric 450-50 mg Capsule] Calcium Carbonate/Vitamin D3 1 tab PO SUTUTHSA 01/24/15 11/23/19 [Calcium 600-Vit D3 400 Tablet] Cholecalciferol [Vitamin D3 (25 2,000 unit PO AC-BRKFST 01/24/15 11/23/19 Mcg = 1000 Iu)] Cyanocobalamin [Vitamin B-12] 1,000 mcg PO DAILY 01/24/15 11/23/19 Ubidecarenone [Co Q-10] 100 mg PO AC-LUNCH 01/24/15 11/23/19 Acetaminophen Tab [Tylenol] 325 - 650 mg PO Q4H PRN 01/09/18 11/23/19 Aspirin EC [Ecotrin Low Dose] 162 mg PO DAILY 01/09/18 11/29/19 Biotin 300 mcg PO AC-BID 01/09/18 11/23/19 Docusate [Colace] 100 mg PO DAILY PRN 01/09/18 11/23/19 Levothyroxine Sodium [Synthroid] 50 mcg PO DAILY 01/09/18 11/29/19 Loperamide HCl [Imodium A-D] 2 mg PO DAILY PRN 01/09/18 11/23/19 Rosuvastatin Calcium [Crestor] 5 mg PO MOTHSA 01/09/18 11/23/19 Vitamin C/Biotin [Hair, Skin and 1 tab PO DAILY 01/09/18 11/23/19 Nails] Liothyronine Sodium [Cytomel] 5 mcg PO DAILY 11/23/19 11/29/19 Meclizine [Antivert] 25 mg PO TID PRN 11/23/19 11/23/19 Simethicone [Gas-X] 125 mg PO DIRECTED PRN 11/23/19 11/23/19 Previous Rx's Medication Instructions Recorded Nitroglycerin Sl Tabs [Nitrostat] 0.4 mg SUBLINGUAL Q5M PRN #25 tab 01/10/18 Acetaminophen Tab [Tylenol] 650 mg PO Q4H #20 tab 05/18/20 Cyclobenzaprine [Flexeril] 10 mg PO TID #12 tab 05/18/20 Allergies Allergy/AdvReac Type Severity Reaction Status Date / Time meperidine HCl [From Demerol] Allergy Severe Anaphylaxis Verified 11/29/19 06:16 amiodarone Allergy Hallucinati Verified 11/29/19 06:16 ons codeine Allergy Unknown Verified 11/29/19 06:16 hydrocodone Allergy Unknown Verified 11/29/19 06:16 lansoprazole Allergy Unknown Verified 11/29/19 06:16 metoprolol Allergy Unknown Verified 11/29/19 06:16 omeprazole [From Prilosec] Allergy Abdominal Verified 11/29/19 06:16 Pain Penicillins Allergy Unknown Verified 11/29/19 06:16 pitavastatin [From Livalo] Allergy Abdominal Verified 11/29/19 06:16 Pain propranolol HCl Allergy Unknown Verified 11/29/19 06:16 [From Inderal LA] sucralfate Allergy Unknown Verified 11/29/19 06:16 tetracycline Allergy Unknown Verified 11/29/19 06:16 rosuvastatin [From Crestor] AdvReac Abdominal Verified 11/29/19 06:16 Pain Review of Systems ROS Statement: Those systems with pertinent positive or pertinent negative responses have been documented in the HPI. ROS Other: All systems not noted in ROS Statement are negative. Past Medical History Past Medical History: Coronary Artery Disease (CAD), Chest Pain / Angina, GERD/Reflux, Hyperlipidemia, Musculoskeletal Disorder, Osteoarthritis (OA), Syncope, Thyroid Disorder Additional Past Medical History / Comment(s): IBS, BENIGN POSITIONAL VERTIGO-has fainted before & has had low blood sugar readings after fainting, hypothyroidism, gastritis. recent sob & chest discomfort History of Any Multi-Drug Resistant Organisms: None Reported Past Surgical History: Breast Surgery, Coronary Bypass/CABG, Heart Catheterization Additional Past Surgical History / Comment(s): Benign breast biopsies x 2 in the left side and one on the right., CABG IN 01/2015, egd Past Anesthesia/Blood Transfusion Reactions: No Reported Reaction Past Psychological History: No Psychological Hx Reported Smoking Status: Never smoker Past Alcohol Use History: Occasional Past Drug Use History: None Reported - Past Family History Father Family Medical History: Coronary Artery Disease (CAD), Myocardial Infarction ([place]) Additional Family Medical History / Comment(s): Father at age 65 from a myocardial infarction. Mother Family Medical History: Cancer Additional Family Medical History / Comment(s): Mother at age 85 from uterine cancer. Brother(s) Family Medical History: Coronary Artery Disease (CAD), Myocardial Infarction ([place]) Additional Family Medical History / Comment(s): Patient has 2 brothers and one has coronary artery disease and one of them is a plastic surgeon. The other one is an ENT surgeon. Sister(s) Family Medical History: No Reported History Additional Family Medical History / Comment(s): She has one sister with no major medical problems. General Exam Limitations: no limitations General appearance: alert, in no apparent distress Head exam: Present: atraumatic, normocephalic, normal inspection Eye exam: Present: normal appearance, PERRL, EOMI. Absent: scleral icterus, conjunctival injection, periorbital swelling ENT exam: Present: normal exam, mucous membranes moist Neck exam: Present: normal inspection. Absent: tenderness, meningismus, lymphadenopathy Respiratory exam: Present: normal lung sounds bilaterally. Absent: respiratory distress, wheezes, rales, rhonchi, stridor Cardiovascular Exam: Present: regular rate, normal rhythm, normal heart sounds. Absent: systolic murmur, diastolic murmur, rubs, gallop, clicks GI/Abdominal exam: Present: soft, normal bowel sounds. Absent: distended, tenderness, guarding, rebound, rigid Extremities exam: Present: normal inspection, full ROM, normal capillary refill. Absent: tenderness, pedal edema, joint swelling, calf tenderness Back exam: Present: normal inspection, full ROM, tenderness (Is no some mid thoracic and right-sided lumbar paraspinal tenderness.), muscle spasm Neurological exam: Present: alert, oriented X3, CN II-XII intact Psychiatric exam: Present: normal affect, normal mood Skin exam: Present: warm, dry, intact, normal color. Absent: rash Course Vital Signs 05/18/20 05/18/20 08:04 08:49 Temperature 98.7 F Pulse Rate 73 72 Respiratory 16 14 Rate Blood Pressure 147/74 153/78 O2 Sat by Pulse 99 98 Oximetry Medical Decision Making - Medical Decision Making 84-year-old female presents today with back spasm and pain after lifting a box yesterday while preparing for her garage sale. Patient at this time had lumbar and thoracic spine x-ray showed no acute fracture. She does have scoliosis. Patient was able to ambulate without difficulty. She does have pain with going from sitting to standing and moving. I gave the Patient muscle relaxer she would decline any further pain medication emergency department. She is able to ambulate without difficulty and has no radiculopathy symptoms no saddle anesthesias or abdominal pain. Patient is an will be discharged with muscle accident happened her medicine. Advised follow-up with PCP. - Radiology Data Radiology results: report reviewed Lumbar spine shows 5 vertebral bodies no fracture dislocation. There is a grade 1 anterolisthesis L4-L5. Vertebral body height remain normal limits. Persistent moderate disc space narrowing at L4-L5 level. Persistent facet arthropathy and lower spine. There is a radiodense F sacral posterior subcutaneous tissue not identified. Breath X-ray shows persistent extra, back scoliosis and midthoracic physician without evidence of acute fracture-dislocation. Osseous structures are somewhat demineralized. Vertebral body height remain preserved. Mild to moderate multilevel disc space narrowing. Overlying sternal wires are noted. Visualizes ribs are unremarkable. Overall impression is no fracture-dislocation and cervical spine. Disposition Clinical Impression: Back muscle spasm, Scoliosis Disposition: HOME SELF-CARE Condition: Good Instructions (If sedation given, give patient instructions): Acute Low Back Pain (ED), Muscle Spasm (ED) Additional Instructions: Patient is to alternate between heat and ice to the back area muscle spasm for 20 minutes of one of the other every other hour. Patient advised to take muscle relaxers and anti-inflammatory medication as prescribed. Return to emergency department if any alarming signs or symptoms occur. Prescriptions: Cyclobenzaprine [Flexeril] 10 mg PO TID #12 tab Acetaminophen Tab [Tylenol] 650 mg PO Q4H #20 tab Is patient prescribed a controlled substance at d/c from ED?: No Referrals: Brandi Sebastian MD [Primary Care Provider] - 1-2 days Time of Disposition: 10:04
--- NOTE | 2020-05-18 08:42 | XR ---
EXAMINATION TYPE: XR thoracic spine 2V DATE OF EXAM: 05/18/2020 CLINICAL HISTORY: Lifting injury yesterday with mid back pain. TECHNIQUE: Frontal, lateral, and swimmer's view of thoracic spine are obtained. COMPARISON: Outside CT January 08, 2013. FINDINGS: Thoracic spine show persistent dextroconvex scoliosis centered in mid thoracic spine withou t evidence of acute fracture or dislocation. Osseous structures somewhat demineralized. Vertebral tiki dy heights remain preserved. [id number] multilevel disc space narrowing. Overlying sternal wire s noted. Visualized ribs are unremarkable. IMPRESSION: No acute fracture or dislocation is seen in the thoracic spine.
--- NOTE | 2020-05-18 08:43 | XR ---
EXAMINATION TYPE: XR lumbar spine 2 or 3V DATE OF EXAM: 05/18/2020 CLINICAL HISTORY: Low back pain after lifting injury yesterday. TECHNIQUE: Frontal and lateral images of the lumbar spine are obtained. COMPARISON: Outside CT January 08, 2018 FINDINGS: There are 5 lumbar type vertebral bodies identified. No acute fracture or dislocation. The lumbar spine redemonstrates grade 1 anterolisthesis L4 on L5. Vertebral body heights remain within n ormal limits. Persistent moderate disc space narrowing L4-L5 level. Persistent facet arthropathy low er lumbar spine. There is radiodense cap left sacral level posterior subcutaneous tissue now identifi ed. IMPRESSION: As above.
[2020-05-18 08:50] VITALS: RESP 14
[2020-05-18] MEDS ORDERED: ACETAMINOPHEN TAB 500 MG TAB PO STA (09:31)
[2020-05-18] MEDS ORDERED: NAPROXEN 250 MG TAB PO STA (09:31)
[2020-05-18 10:21] VITALS: BP 150/70; PULSE 70
== END 2020-05-18 10:19 | disposition home or self-care (01) ==
LOC: EC 08:02
DX: M62.830 Muscle spasm of back (principal); M41.84 Other forms of scoliosis, thoracic region; K21.9 Gastro-esophageal reflux disease without esophagitis; I25.119 Atherosclerotic heart disease of native coronary artery with unspecified angina pectoris; E78.5 Hyperlipidemia, unspecified; M19.90 Unspecified osteoarthritis, unspecified site; E03.9 Hypothyroidism, unspecified; K58.9 Irritable bowel syndrome, unspecified; Z79.890 Hormone replacement therapy; Z79.82 Long term (current) use of aspirin; Z79.899 Other long term (current) drug therapy; Z88.8 Allergy status to other drugs, medicaments and biological substances; Z88.1 Allergy status to other antibiotic agents; Z88.0 Allergy status to penicillin; Z88.5 Allergy status to narcotic agent; Z95.1 Presence of aortocoronary bypass graft
CPT/HCPCS: 72070; 72100; 99284; 96372; J2360

== ENCOUNTER 2021-05-21 14:26 | Inpatient (IN) | payer MEDICARE ==
[2021-05-21] MEDS ORDERED: SODIUM CHLORIDE 0.9% 500 ML 500 ML IV STA (15:01)
--- NOTE | 2021-05-21 15:19 | ED ---
General Adult HPI - General Chief complaint: Fall Stated complaint: fall Time Seen by Provider: 05/21/21 14:35 Source: EMS, RN notes reviewed, old records reviewed Mode of arrival: EMS Limitations: altered mental status - History of Present Illness Initial comments: This is an 85-year-old female presents emergency Department from a assisted. They sent her in because she fell a week ago and is complaining of right hip pain. There is also a note that the patient had some hematuria. There is no indication that the patient and her head there is no indication patient had any fever. There is no indication any abdominal pain or chest pain or back pain. Patient is unable to give any history she doesn't even know why she is here at this time. - Related Data Home Medications Medication Instructions Recorded Confirmed L.acidoph/B.long/L.plant/B.lac 1 cap PO AC-SUPPER 01/23/15 11/23/19 [Probiotic Acidophilus Beads] Magnesium Oxide [Mag-Ox] 250 mg PO AC-SUPPER 01/23/15 11/23/19 Turmeric/Turmeric Root Extract 1 each PO DAILY #0 01/23/15 11/23/19 [Turmeric 450-50 mg Capsule] Calcium Carbonate/Vitamin D3 1 tab PO SUTUTHSA 01/24/15 11/23/19 [Calcium 600-Vit D3 400 Tablet] Cholecalciferol [Vitamin D3 (25 2,000 unit PO AC-BRKFST 01/24/15 11/23/19 Mcg = 1000 Iu)] Cyanocobalamin [Vitamin B-12] 1,000 mcg PO DAILY 01/24/15 11/23/19 Ubidecarenone [Co Q-10] 100 mg PO AC-LUNCH 01/24/15 11/23/19 Acetaminophen Tab [Tylenol] 325 - 650 mg PO Q4H PRN 01/09/18 11/23/19 Aspirin EC [Ecotrin Low Dose] 162 mg PO DAILY 01/09/18 11/29/19 Biotin 300 mcg PO AC-BID 01/09/18 11/23/19 Docusate [Colace] 100 mg PO DAILY PRN 01/09/18 11/23/19 Levothyroxine Sodium [Synthroid] 50 mcg PO DAILY 01/09/18 11/29/19 Loperamide HCl [Imodium A-D] 2 mg PO DAILY PRN 01/09/18 11/23/19 Rosuvastatin Calcium [Crestor] 5 mg PO MOTHSA 01/09/18 11/23/19 Vitamin C/Biotin [Hair, Skin and 1 tab PO DAILY 01/09/18 11/23/19 Nails] Liothyronine Sodium [Cytomel] 5 mcg PO DAILY 11/23/19 11/29/19 Meclizine [Antivert] 25 mg PO TID PRN 11/23/19 11/23/19 Simethicone [Gas-X] 125 mg PO DIRECTED PRN 11/23/19 11/23/19 Previous Rx's Medication Instructions Recorded Nitroglycerin Sl Tabs [Nitrostat] 0.4 mg SUBLINGUAL Q5M PRN #25 tab 01/10/18 Acetaminophen Tab [Tylenol] 650 mg PO Q4H #20 tab 05/18/20 Cyclobenzaprine [Flexeril] 10 mg PO TID #12 tab 05/18/20 Allergies Allergy/AdvReac Type Severity Reaction Status Date / Time meperidine HCl [From Demerol] Allergy Severe Anaphylaxis Verified 11/29/19 06:16 amiodarone Allergy Hallucinati Verified 11/29/19 06:16 ons codeine Allergy Unknown Verified 11/29/19 06:16 hydrocodone Allergy Unknown Verified 11/29/19 06:16 lansoprazole Allergy Unknown Verified 11/29/19 06:16 metoprolol Allergy Unknown Verified 11/29/19 06:16 omeprazole [From Prilosec] Allergy Abdominal Verified 11/29/19 06:16 Pain Penicillins Allergy Unknown Verified 11/29/19 06:16 pitavastatin [From Livalo] Allergy Abdominal Verified 11/29/19 06:16 Pain propranolol HCl Allergy Unknown Verified 11/29/19 06:16 [From Inderal LA] sucralfate Allergy Unknown Verified 11/29/19 06:16 tetracycline Allergy Unknown Verified 11/29/19 06:16 rosuvastatin [From Crestor] AdvReac Abdominal Verified 11/29/19 06:16 Pain Review of Systems ROS Statement: Those systems with pertinent positive or pertinent negative responses have been documented in the HPI. ROS Other: All systems not noted in ROS Statement are negative. Past Medical History Past Medical History: Coronary Artery Disease (CAD), Chest Pain / Angina, GERD/Reflux, Hyperlipidemia, Musculoskeletal Disorder, Osteoarthritis (OA), Syncope, Thyroid Disorder Additional Past Medical History / Comment(s): IBS, BENIGN POSITIONAL VERTIGO-has fainted before & has had low blood sugar readings after fainting, hypothyroidism, gastritis. recent sob & chest discomfort History of Any Multi-Drug Resistant Organisms: None Reported Past Surgical History: Breast Surgery, Coronary Bypass/CABG, Heart Catheterization Additional Past Surgical History / Comment(s): Benign breast biopsies x 2 in the left side and one on the right., CABG IN 01/2015, egd Past Anesthesia/Blood Transfusion Reactions: No Reported Reaction Past Psychological History: No Psychological Hx Reported Smoking Status: Never smoker Past Alcohol Use History: Occasional Past Drug Use History: None Reported - Past Family History Father Family Medical History: Coronary Artery Disease (CAD), Myocardial Infarction ([place]) Additional Family Medical History / Comment(s): Father at age 65 from a myocardial infarction. Mother Family Medical History: Cancer Additional Family Medical History / Comment(s): Mother at age 85 from uterine cancer. Brother(s) Family Medical History: Coronary Artery Disease (CAD), Myocardial Infarction ([place]) Additional Family Medical History / Comment(s): Patient has 2 brothers and one has coronary artery disease and one of them is a plastic surgeon. The other one is an ENT surgeon. Sister(s) Family Medical History: No Reported History Additional Family Medical History / Comment(s): She has one sister with no major medical problems. General Exam - General Exam Comments Initial Comments: GENERAL: Patient is well-developed and well-nourished. Patient is nontoxic and well- hydrated and is in mild distress. ENT: Neck is soft and supple. No significant lymphadenopathy is noted. Oropharynx is clear. Moist mucous membranes. Neck has full range of motion without eliciting any pain. EYES: The sclera were anicteric and conjunctiva were pink and moist. Extraocular movements were intact and pupils were equal round and reactive to light. E yelids were unremarkable. PULMONARY: Unlabored respirations. Good breath sounds bilaterally. No audible rales rhonchi or wheezing was noted. CARDIOVASCULAR: There is a regular rate and rhythm without any murmurs gallops or rubs. ABDOMEN: Soft and nontender with normal bowel sounds. SKIN: Skin is clear with no lesions or rashes and otherwise unremarkable. NEUROLOGIC: Patient is alert and oriented 1. Cranial nerves II through XII are grossly intact. Motor and sensory are also intact. Normal speech, volume and content. Symmetrical smile. MUSCULOSKELETAL: Patient's left hip is tender to palpation and movement of that hip in any direction causes her quite a bit of discomfort LYMPHATICS: No significant lymphadenopathy is noted PSYCHIATRIC: Unable to secondary to patient's mental status Limitations: no limitations Course Vital Signs 05/21/21 05/21/21 14:34 15:51 Temperature 98.2 F Pulse Rate 88 72 Respiratory 16 16 Rate Blood Pressure 100/58 105/54 O2 Sat by Pulse 97 98 Oximetry Medical Decision Making - Medical Decision Making EKG shows normal sinus rhythm at 71 bpm [place] interval 190 QRS is 68 QT interval 4:30 QTC is 475. Patient's EKG shows T-wave inversions in the precordial leads feet 3 V4 V5 and V6 Chest x-ray shows no acute normalities. Hip x-ray shows a right intertrochanteric hip fracture. I spoke with Dr. Sosa he agreed to admit the patient admitted the patient I wrote admitting orders. - Lab Data Result diagrams: 05/21/21 15:40 05/21/21 15:40 Lab Results 05/21/21 05/21/21 05/21/21 Range/Units 15:40 15:40 15:40 WBC 6.0 (3.8-10.6) k/uL RBC 2.78 L (3.80-5.40) m/uL Hgb 9.1 L (11.4-16.0) gm/dL Hct 28.0 L (34.0-46.0) % MCV 100.8 H (80.0-100.0) fL MCH 32.6 (25.0-35.0) pg MCHC 32.4 (31.0-37.0) g/dL RDW 14.8 (11.5-15.5) % Plt Count 570 H (150-450) k/uL MPV 7.0 Neutrophils % 79 % Lymphocytes % 10 % Monocytes % 6 % Eosinophils % 3 % Basophils % 1 % Neutrophils # 4.7 (1.3-7.7) k/uL Lymphocytes # 0.6 L (1.0-4.8) k/uL Monocytes # 0.4 (0-1.0) k/uL Eosinophils # 0.2 (0-0.7) k/uL Basophils # 0.0 (0-0.2) k/uL Hypochromasia Slight Macrocytosis Slight PT 10.5 (9.0-12.0) sec INR 1.0 (<1.2) APTT 22.5 (22.0-30.0) sec Sodium 133 L (137-145) mmol/L Potassium 4.1 (3.5-5.1) mmol/L Chloride 103 (98-107) mmol/L Carbon Dioxide 24 (22-30) mmol/L Anion Gap 6 mmol/L BUN 30 H (7-17) mg/dL Creatinine 0.80 (0.52-1.04) mg/dL Est GFR (CKD-EPI)AfAm 78 (>60 ml/min/1.73 sqM) Est GFR (CKD-EPI)NonAf 68 (>60 ml/min/1.73 sqM) Glucose 111 H (74-99) mg/dL Plasma Lactic Acid [place] (0.7-2.0) mmol/L Calcium 9.1 (8.4-10.2) mg/dL Magnesium 2.2 (1.6-2.3) mg/dL Total Bilirubin 0.3 (0.2-1.3) mg/dL AST 17 (14-36) U/L ALT 10 (4-34) U/L Alkaline Phosphatase 130 H (38-126) U/L Troponin I (0.000-0.034) ng/mL Total Protein 5.5 L (6.3-8.2) g/dL Albumin 2.9 L (3.5-5.0) g/dL Urine Color Urine Appearance (Clear) Urine pH (5.0-8.0) Ur Specific [place] (1.001-1.035) Urine Protein (Negative) Urine Glucose (UA) (Negative) Urine Ketones (Negative) Urine Blood (Negative) Urine Nitrite (Negative) Urine Bilirubin (Negative) Urine Urobilinogen (<2.0) mg/dL Ur Leukocyte Esterase (Negative) Urine WBC (0-5) /hpf Urine WBC Clumps (None) /hpf Urine Bacteria (None) /hpf Urine Mucus (None) /hpf Urine Yeast (Budding) (None) /hpf 05/21/21 05/21/21 05/21/21 Range/Units 15:40 15:40 15:51 WBC (3.8-10.6) k/uL RBC (3.80-5.40) m/uL Hgb (11.4-16.0) gm/dL Hct (34.0-46.0) % MCV (80.0-100.0) fL MCH (25.0-35.0) pg MCHC (31.0-37.0) g/dL RDW (11.5-15.5) % Plt Count (150-450) k/uL MPV Neutrophils % % Lymphocytes % % Monocytes % % Eosinophils % % Basophils % % Neutrophils # (1.3-7.7) k/uL Lymphocytes # (1.0-4.8) k/uL Monocytes # (0-1.0) k/uL Eosinophils # (0-0.7) k/uL Basophils # (0-0.2) k/uL Hypochromasia Macrocytosis PT (9.0-12.0) sec INR (<1.2) APTT (22.0-30.0) sec Sodium (137-145) mmol/L Potassium (3.5-5.1) mmol/L Chloride (98-107) mmol/L Carbon Dioxide (22-30) mmol/L Anion Gap mmol/L BUN (7-17) mg/dL Creatinine (0.52-1.04) mg/dL Est GFR (CKD-EPI)AfAm (>60 ml/min/1.73 sqM) Est GFR (CKD-EPI)NonAf (>60 ml/min/1.73 sqM) Glucose (74-99) mg/dL Plasma Lactic Acid [place] 0.8 (0.7-2.0) mmol/L Calcium (8.4-10.2) mg/dL Magnesium (1.6-2.3) mg/dL Total Bilirubin (0.2-1.3) mg/dL AST (14-36) U/L ALT (4-34) U/L Alkaline Phosphatase (38-126) U/L Troponin I <0.012 (0.000-0.034) ng/mL Total Protein (6.3-8.2) g/dL Albumin (3.5-5.0) g/dL Urine Color Red Urine Appearance Turbid H (Clear) Urine pH 5.5 (5.0-8.0) Ur Specific [place] 1.021 (1.001-1.035) Urine Protein 1+ H (Negative) Urine Glucose (UA) Negative (Negative) Urine Ketones Negative (Negative) Urine Blood Large H (Negative) Urine Nitrite Negative (Negative) Urine Bilirubin Negative (Negative) Urine Urobilinogen <2.0 (<2.0) mg/dL Ur Leukocyte Esterase Large H (Negative) Urine WBC >182 H (0-5) /hpf Urine WBC Clumps Many H (None) /hpf Urine Bacteria Many H (None) /hpf Urine Mucus Moderate H (None) /hpf Urine Yeast (Budding) Many H (None) /hpf Disposition Clinical Impression: Fall, Fracture, intertrochanteric, right femur Disposition: ADMITTED IP TO THIS HOSP Referrals: Brandi Sebastian MD [Primary Care Provider] - 1-2 days Time of Disposition: 18:37
[2021-05-21 15:48] LABS: Basophils % (A) 1 %; Eosinophils # (A) 0.2 k/uL (0-0.7); Eosinophils % (A) 3 %; HGB 9.1 gm/dL (11.4-16.0); Hypochromasia Slight; Lymphocytes # (A) 0.6 k/uL (1.0-4.8); Lymphocytes % (A) 10 %; MCH 32.6 pg (25.0-35.0); MCHC 32.4 g/dL (31.0-37.0); MCV 100.8 fL (80.0-100.0); Macrocytosis Slight; Monocytes # (A) 0.4 k/uL (0-1.0); Monocytes % (A) 6 %; Neutrophils # (A) 4.7 k/uL (1.3-7.7); Neutrophils % (A) 79 %; Platelet Count 570 k/uL (150-450); RBC 2.78 m/uL (3.80-5.40); RDW 14.8 % (11.5-15.5)
[2021-05-21 15:57] LABS: Partial Thromboplastin Time 22.5 sec (22.0-30.0); Prothrombin Time 10.5 sec (9.0-12.0)
[2021-05-21 16:00] LABS: Appearance,Urine Turbid (Clear); Bacteria,Urine Many /hpf; Bilirubin,Urine Negative (Negative); Blood,Urine Large (Negative); Budding Yeast,Urine Many /hpf; Color,Urine Red; Glucose,Urine (UA) Negative (Negative); Ketones,Urine Negative (Negative); Leukocyte Esterase,Urine Large (Negative); Mucus,Urine Moderate /hpf; Nitrite,Urine Negative (Negative); PH, Urine 5.5 (5.0-8.0); Protein,Urine 1+ (Negative); Specific Gravity,Urine 1.021 (1.001-1.035); Urobilinogen,Urine <2.0 mg/dL (<2.0); WBC,Urine >182 /hpf (0-5)
[2021-05-21 16:21] LABS: Albumin 2.9 g/dL (3.5-5.0); Calcium 9.1 mg/dL (8.4-10.2); Magnesium 2.2 mg/dL (1.6-2.3); Potassium 4.1 mmol/L (3.5-5.1); Total Bilirubin 0.3 mg/dL (0.2-1.3); Total Protein 5.5 g/dL (6.3-8.2)
--- NOTE | 2021-05-21 18:18 | XR ---
EXAMINATION TYPE: XR Hip RT and AP Pelvis DATE OF EXAM: 05/21/2021 COMPARISON: NONE HISTORY: Fall. Pain TECHNIQUE: 3 views FINDINGS: There is comminuted acute intertrochanteric fracture right femur. There is coxa vera deform ity. There is evidence of bilateral old healed fractures of the superior and inferior pubic rami. The sacroiliac joints are intact. IMPRESSION: Acute intertrochanteric fracture right femur.
--- NOTE | 2021-05-21 18:28 | XR ---
EXAMINATION TYPE: XR chest 1V DATE OF EXAM: 05/21/2021 COMPARISON: 01/28/2015 HISTORY: Fall. Hip fracture. TECHNIQUE: FINDINGS: There is no heart failure nor confluent pneumonic infiltrate. Costophrenic angles are clear . There is some linear density over the left upper lobe that is probably skinfolds. Trachea is midlin e. IMPRESSION: No active cardiopulmonary disease. No adverse change.
[2021-05-21] MEDS ORDERED: SODIUM CHLORIDE 0.9% 1,000 ML IV ONE (18:38)
[2021-05-21] MEDS ORDERED: HYDROcodone/APAP 5-325MG 1 EACH TAB PO PRN (23:55)
[2021-05-22] MEDS: LEVOTHYROXINE 50 MCG TAB PO SCH (05:58)
[2021-05-22] MEDS: polyethylene glycoL 3350 17 GM POWD.PACK PO SCH ×3 (07:32→21:45)
[2021-05-22] MEDS: DOCUSATE 100 MG CAP PO SCH ×2 (07:33→21:39)
[2021-05-22] MEDS: CHOLECALCIFEROL 25 MCG (1000 IU) TABLET PO SCH (07:34)
[2021-05-22] MEDS: LIDOCAINE 5% PATCH TOPICAL SCH (07:43)
[2021-05-22] MEDS: CIPROFLOXACIN HCL 250 MG TAB PO SCH ×2 (07:43→21:39)
[2021-05-22] MEDS: amLODIPine 10 MG TAB PO SCH (07:43)
[2021-05-22] MEDS ORDERED: FAMOTIDINE 20 MG TAB PO SCH (09:00)
--- NOTE | 2021-05-22 09:30 | P.HPOR ---
History of Present Illness H&P Date: 05/22/21 Chief Complaint: Right hip pain the patient is a pleasantly demented 85-year-old female who presents to the emergency room regards to her right hip pain. Patient is unsure of any specific fall she is not a good historian or reliable historian. She says that she may have fallen at some point in the past few days due to but does not remember any incident. She says that she has chronic back pain but she is able to get around with a walker but does occasionally use a wheelchair. She does not complain of any other pain. She does not complain of any fevers chills or night sweats. She has pain when she tries to move her right leg. She denies any abdominal pain she denies any nausea or vomiting. She does not have pain management she left leg. She is quite a poor story and is unable to give any details to a preceding events were prior issues at her leg. She says that she does have chronic pain at her lower back. Review of Systems As stated per HPI. She is unsure of any specific trauma. She denies any changes in bowel bladder function. Past Medical History Past Medical History: Coronary Artery Disease (CAD), Chest Pain / Angina, GERD/Reflux, Hyperlipidemia, Musculoskeletal Disorder, Osteoarthritis (OA), Syncope, Thyroid Disorder Additional Past Medical History / Comment(s): Dementia, IBS, BENIGN POSITIONAL VERTIGO-has fainted before & has had low blood sugar readings after fainting, hypothyroidism, gastritis. recent sob & chest discomfort History of Any Multi-Drug Resistant Organisms: None Reported Past Surgical History: Breast Surgery, Coronary Bypass/CABG, Heart Catheterization Additional Past Surgical History / Comment(s): Benign breast biopsies x 2 in the left side and one on the right., CABG IN 01/2015, egd Past Anesthesia/Blood Transfusion Reactions: No Reported Reaction Past Psychological History: No Psychological Hx Reported Smoking Status: Never smoker Past Alcohol Use History: Occasional Additional Past Alcohol Use History / Comment(s): Patient is a lifelong nonsmoker. No illicit drug use. She drinks a glass of wine wine a couple night s a week. Past Drug Use History: None Reported - Past Family History Father Family Medical History: Coronary Artery Disease (CAD), Myocardial Infarction ([place]) Additional Family Medical History / Comment(s): Father at age 65 from a myocardial infarction. Mother Family Medical History: Cancer Additional Family Medical History / Comment(s): Mother at age 85 from uterine cancer. Brother(s) Family Medical History: Coronary Artery Disease (CAD), Myocardial Infarction ([place]) Additional Family Medical History / Comment(s): Patient has 2 brothers and one has coronary artery disease and one of them is a plastic surgeon. The other one is an ENT surgeon. Sister(s) Family Medical History: No Reported History Additional Family Medical History / Comment(s): She has one sister with no major medical problems. Medications and Allergies Home Medications Medication Instructions Recorded Confirmed Type Cholecalciferol [Vitamin D3 (25 25 mcg PO DAILY@0800 01/24/15 05/21/21 History Mcg = 1000 Iu)] Docusate [Colace] 100 mg PO BID 01/09/18 05/21/21 History Levothyroxine Sodium [Synthroid] 50 mcg PO DAILY@0600 01/09/18 05/21/21 History Acetaminophen Tab [Tylenol] 650 mg PO Q8H PRN 05/21/21 05/21/21 History Aspirin 81 mg PO BID 05/21/21 05/21/21 History Ciprofloxacin HCl [Cipro] 250 mg PO Q12H 05/21/21 05/21/21 History Famotidine [Pepcid] 20 mg PO Q12H 05/21/21 05/21/21 History HYDROcodone/APAP 5-325MG [[place] 1 tab PO Q6H PRN 05/21/21 05/21/21 History 5-325] Lidocaine [Lidoderm 5% Patch] 1 patch TRANSDERM DAILY 05/21/21 05/21/21 History amLODIPine [Norvasc] 10 mg PO DAILY@0800 05/21/21 05/21/21 History polyethylene glycoL 3350 [Miralax] 17 gm PO BID 05/21/21 05/21/21 History Allergies Allergy/AdvReac Type Severity Reaction Status Date / Time meperidine HCl [From Demerol] Allergy Severe Anaphylaxis Verified 05/21/21 22:23 amiodarone Allergy Hallucinati Verified 05/21/21 22:23 ons codeine Allergy Unknown Verified 05/21/21 22:23 hydrocodone Allergy Unknown Verified 05/21/21 22:23 lansoprazole Allergy Unknown Verified 05/21/21 22:23 metoprolol Allergy Unknown Verified 05/21/21 22:23 omeprazole [From Prilosec] Allergy Abdominal Verified 05/21/21 22:23 Pain Penicillins Allergy Unknown Verified 05/21/21 22:23 pitavastatin [From Livalo] Allergy Abdominal Verified 05/21/21 22:23 Pain propranolol HCl Allergy Unknown Verified 05/21/21 22:23 [From Inderal LA] sucralfate Allergy Unknown Verified 05/21/21 22:23 tetracycline Allergy Unknown Verified 05/21/21 22:23 rosuvastatin [From Crestor] AdvReac Abdominal Verified 05/21/21 22:23 Pain Physical Examination Osteopathic Statement: *. No significant issues noted on an osteopathic structural exam other than those noted in the History and Physical/Consult. - Hip right Gait: other (She is in bed and unable get up. She has pain with any motion around her right hip. She has sustained dorsal flexion plantar flexion and EHL bilaterally. Left hip is no pain to palpation range of motion. Compartments are soft bilaterally. Abdomen is soft nontender. Her arms have good active an) Tenderness with palpation: other (Her arms have good and full active and passive range motion. Neck is nontender. She has paravertebral spasm in her lower back.) Results - Labs Labs: Abnormal Lab Results - Last 24 Hours (Table) 05/21/21 05/21/21 05/21/21 Range/Units 15:40 15:40 15:51 RBC 2.78 L (3.80-5.40) m/uL Hgb 9.1 L (11.4-16.0) gm/dL Hct 28.0 L (34.0-46.0) % MCV 100.8 H (80.0-100.0) fL Plt Count 570 H (150-450) k/uL Lymphocytes # 0.6 L (1.0-4.8) k/uL Sodium 133 L (137-145) mmol/L BUN 30 H (7-17) mg/dL Glucose 111 H (74-99) mg/dL Alkaline Phosphatase 130 H (38-126) U/L Total Protein 5.5 L (6.3-8.2) g/dL Albumin 2.9 L (3.5-5.0) g/dL Urine Appearance Turbid H (Clear) Urine Protein 1+ H (Negative) Urine Blood Large H (Negative) Ur Leukocyte Esterase Large H (Negative) Urine WBC >182 H (0-5) /hpf Urine WBC Clumps Many H (None) /hpf Urine Bacteria Many H (None) /hpf Urine Mucus Moderate H (None) /hpf Urine Yeast (Budding) Many H (None) /hpf Microbiology - Last 24 Hours (Table) 05/21/21 15:51 Urine Culture - Preliminary Urine,Clean Catch H & H 05/21/21 Range/Units 15:40 Hgb 9.1 L (11.4-16.0) gm/dL Hct 28.0 L (34.0-46.0) % Coagulation 05/21/21 Range/Units 15:40 INR 1.0 (<1.2) Result Diagrams: 05/21/21 15:40 05/21/21 15:40 - Diagnostic results Hip x-ray: report reviewed, image reviewed (Osteopenic bone. Right hip displaced intertrochanteric femur fracture) Assessment and Plan Assessment: Right hip intertrochanteric femur fracture displace and angulated, appears acute and traumatic Osteoporotic bone Dementia Right hip pains due to fracture Chronic low back pain Plan: Right hip intertrochanteric femur fracture displace and angulated, appears acute and traumatic Osteoporotic bone Dementia Right hip pains due to fracture Chronic low back pain The patient has an acute displaced intratrochanteric right hip fracture, and will require intervention to give her the best chance of mobility and ambulation. I splinted her the nature of the injury and discussed the treatment options. It is very likely that without intervention she would not be able to get out of bed at all. Surgery would give her the chance to mobilize stabilize her right hip so that it could potentially heal and she can resume mobility and potential ambulation. She has history of chronic back issues and already has some ambulatory issues and I explained to her that this will be quite difficult course for her but this gives her the best chance of recovery. I think that she would require an intramedullary hip screw fixation for her right hip intertrochanteric trochanteric fracture. I discussed the risk of occasions alternatives and benefits she understands and is agreeable. She is somewhat confused and will contact and return to her family for appropriate consent. She has a urinary tract infection and is being treated with Cipro. She is being seen by medicine this morning for appropriate clearance. With her status and treatment with antibiotics think we should be able to proceed with surgery today if she is cleared by medicine.
[2021-05-22 09:36] LABS: African American GFR (CKD) 78 (>60 ml/min/1.73 sqM); Anion Gap 7 mmol/L; Blood Urea Nitrogen 25 mg/dL (7-17); Calcium 9.2 mg/dL (8.4-10.2); Carbon Dioxide 26 mmol/L (22-30); Chloride 103 mmol/L (98-107); Glucose 96 mg/dL (74-99); Non-African American GFR(CKD) 68 (>60 ml/min/1.73 sqM); Potassium 4.4 mmol/L (3.5-5.1); Sodium 136 mmol/L (137-145)
--- NOTE | 2021-05-22 12:19 | P.CRDCN ---
History of Present Illness History of present illness: HISTORY OF PRESENTING ILLNESS This is a pleasant 85-year-old female past medical history significant for coronary artery disease status post CABG in 2015, dyslipidemia and palpitations, hypertension. She follows in the office with Dr. Bullock We have been asked to see in consultation for preoperative clearance. Patient is seen and examined at bedside, patient presents emergency department due to right hip pain. Patient is pleasantly confused. Patient is unsure of any specific fall she is not a good historian or reliable historian. Patient does not remember falling. She states she may have fallen at some point in the past few days due to but does not remember any incident. She does have chronic back pain, does use a walker and a wheelchair at home. Right hip Xray revealed Right hip displaced intertrochanteric femur fracture. Orthopedics was consulted. Patient possibly going for intramedullary hip screw fixation for her right hip intertrochanteric trochanteric fracture. Patient denies any chest pain, shortness of breath, lightheadedness, dizziness. DIAGNOSTICS EKG reveals sinus rhythm, heart rate 71, T wave inversions in leads V3V6 and lead aVF. Prior EKG in 2017 with similar findings. Most recent stress test with Cardiolite in 10/2019 which revealed moderate sized area of mild intensity reversible defect involving the lateral wall suggestive of stress-induced ischemia. Patient underwent cardiac catheterization 11/2019 which revealed chronically occluded proximal LAD, mild disease in the RCA with 2030 percent in the midsegment of the RCA. Patent SHABAZZ to LAD. Most recent echocardiogram in the office 12/22/2018 which revealed a normal ejection fraction 55%, grade 1 diastolic dysfunction, mild mitral regurgitation, mild to moderate tricuspid regurgitation Holter monitor report on 04/2020- revealed sinus rhythm, no arrhythmia, no episodes of high degree AV block, Chest xray no acute cardiopulmonary process. Laboratory reviewed, WBC 6, A1-1, platelets 570, sodium 136, potassium 4.4, BUN 25, serum creatinine 0.8, troponin negative 1, magnesium 2.2 Current home cardiac medications include aspirin 81 mg daily, amlodipine 10 mg daily REVIEW OF SYSTEMS At the time of my exam: CONSTITUTIONAL: Denies fever or chills. CARDIOVASCULAR: Denies chest pain, shortness of breath, orthopnea, PND or palpitations. RESPIRATORY: Denies cough. GASTROINTESTINAL: Denies abdominal pain, diarrhea, constipation, nausea or vomiting. MUSCULOSKELETAL: +right hip pain NEUROLOGIC: Denies numbness, tingling, headacbe or weakness. ENDOCRINE: Denies fatigue, weight change, polydipsia or polyurina. GENITOURINARY: Denies burning, hematuria or urgency with micturation. HEMATOLOGIC: Denies history of anemia or bleeding. PHYSICAL EXAMINATION Blood pressure 120/64 heart rate 71 afebrile and maintaining oxygen saturation 98% on room air CONSTITUTIONAL: No apparent distress. HEENT: Head is normocephalic. Pupils are equal, round. Sclerae anicteric. Mucous membranes of the mouth are moist. No JVD. No carotid bruit. CHEST EXAMINATION: Lungs are clear to auscultation. No chest wall tenderness is noted on palpation or with deep breathing. HEART EXAMINATION: Regular rate and rhythm. S1, S2 heard. No murmurs, gallops or rub. ABDOMEN: Soft, nontender. Positive bowel sounds. EXTREMITIES: 2+ peripheral pulses, no lower extremity edema and no calf tenderness. NEUROLOGIC EXAMINATION: Patient is awake, alert oriented x 1 to person ASSESSMENT Right hip intertrochanteric femur fracture History of hypertension Coronary artery disease status post CABG in 2014 Dyslipidemia - Patient has stopped her statin because of pain and intolerance. She also could not tolerate Zetia before History of palpitations PLAN Obtain 2D echocardiogram prior to surgery From a cardiology perspective, if 2D echocardiogram with no acute findings, there is no acute contraindication to undergo surgery. She does not currently have any acute cardiac conditions at this time. Patient does not appear to be able to complete >4 METs levels of activity. Patient is hemodynamically stable. Recommend cautious fluid administration and optimal BP control. Nurse Practitioner note has been reviewed, I agree with a documented findings and plan of care. Patient was seen and examined. Past Medical History Past Medical History: Coronary Artery Disease (CAD), Chest Pain / Angina, GERD/Reflux, Hyperlipidemia, Musculoskeletal Disorder, Osteoarthritis (OA), Syncope, Thyroid Disorder Additional Past Medical History / Comment(s): Dementia, IBS, BENIGN POSITIONAL VERTIGO-has fainted before & has had low blood sugar readings after fainting, hypothyroidism, gastritis. recent sob & chest discomfort History of Any Multi-Drug Resistant Organisms: None Reported Past Surgical History: Breast Surgery, Coronary Bypass/CABG, Heart Catheterization Additional Past Surgical History / Comment(s): Benign breast biopsies x 2 in the left side and one on the right., CABG IN 01/2015, egd Past Anesthesia/Blood Transfusion Reactions: No Reported Reaction Past Psychological History: No Psychological Hx Reported Smoking Status: Never smoker Past Alcohol Use History: Occasional Additional Past Alcohol Use History / Comment(s): Patient is a lifelong nonsmoker. No illicit drug use. She drinks a glass of wine wine a couple nights a week. Past Drug Use History: None Reported - Past Family History Father Family Medical History: Coronary Artery Disease (CAD), Myocardial Infarction ([place]) Additional Family Medical History / Comment(s): Father at age 65 from a myocardial infarction. Mother Family Medical History: Cancer Additional Family Medical History / Comment(s): Mother at age 85 from uterine cancer. Brother(s) Family Medical History: Coronary Artery Disease (CAD), Myocardial Infarction ([place]) Additional Family Medical History / Comment(s): Patient has 2 brothers and one has coronary artery disease and one of them is a plastic surgeon. The other one is an ENT surgeon. Sister(s) Family Medical History: No Reported History Additional Family Medical History / Comment(s): She has one sister with no major medical problems. Medications and Allergies Home Medications Medication Instructions Recorded Confirmed Type Cholecalciferol [Vitamin D3 (25 25 mcg PO DAILY@0800 01/24/15 05/21/21 History Mcg = 1000 Iu)] Docusate [Colace] 100 mg PO BID 01/09/18 05/21/21 History Levothyroxine Sodium [Synthroid] 50 mcg PO DAILY@0600 01/09/18 05/21/21 History Acetaminophen Tab [Tylenol] 650 mg PO Q8H PRN 05/21/21 05/21/21 History Aspirin 81 mg PO BID 05/21/21 05/21/21 History Ciprofloxacin HCl [Cipro] 250 mg PO Q12H 05/21/21 05/21/21 History Famotidine [Pepcid] 20 mg PO Q12H 05/21/21 05/21/21 History HYDROcodone/APAP 5-325MG [[place] 1 tab PO Q6H PRN 05/21/21 05/21/21 History 5-325] Lidocaine [Lidoderm 5% Patch] 1 patch TRANSDERM DAILY 05/21/21 05/21/21 History amLODIPine [Norvasc] 10 mg PO DAILY@0800 05/21/21 05/21/21 History polyethylene glycoL 3350 [Miralax] 17 gm PO BID 05/21/21 05/21/21 History Allergies Allergy/AdvReac Type Severity Reaction Status Date / Time meperidine HCl [From Demerol] Allergy Severe Anaphylaxis Verified 05/21/21 22:23 amiodarone Allergy Hallucinati Verified 05/21/21 22:23 ons codeine Allergy Unknown Verified 05/21/21 22:23 hydrocodone Allergy Unknown Verified 05/21/21 22:23 lansoprazole Allergy Unknown Verified 05/21/21 22:23 metoprolol Allergy Unknown Verified 05/21/21 22:23 omeprazole [From Prilosec] Allergy Abdominal Verified 05/21/21 22:23 Pain Penicillins Allergy Unknown Verified 05/21/21 22:23 pitavastatin [From Livalo] Allergy Abdominal Verified 05/21/21 22:23 Pain propranolol HCl Allergy Unknown Verified 05/21/21 22:23 [From Inderal LA] sucralfate Allergy Unknown Verified 05/21/21 22:23 tetracycline Allergy Unknown Verified 05/21/21 22:23 rosuvastatin [From Crestor] AdvReac Abdominal Verified 05/21/21 22:23 Pain Physical Exam Vitals: Vital Signs Temp Pulse Pulse Resp BP BP Pulse Ox 05/22/21 07:54 97.9 F 71 16 120/64 98 05/22/21 03:05 97.6 F 68 15 112/67 98 05/21/21 23:43 99.0 F 72 17 127/70 98 05/21/21 21:15 67 16 110/66 96 05/21/21 20:00 69 16 115/63 96 05/21/21 18:43 98.9 F 69 16 119/64 98 05/21/21 15:51 72 16 105/54 98 05/21/21 14:34 98.2 F 88 16 100/58 97 Intake and Output 05/21/21 05/22/21 05/22/21 22:59 06:59 14:59 Output Total 475 Balance -475 Output: Urine 475 Other: # Voids 2 Weight 49.895 kg Results 05/21/21 15:40 05/22/21 08:30 Cardiac Enzymes 05/21/21 05/21/21 Range/Units 15:40 15:40 AST 17 (14-36) U/L Troponin I <0.012 (0.000-0.034) ng/mL Coagulation 05/21/21 Range/Units 15:40 PT 10.5 (9.0-12.0) sec APTT 22.5 (22.0-30.0) sec CBC 05/21/21 Range/Units 15:40 WBC 6.0 (3.8-10.6) k/uL RBC 2.78 L (3.80-5.40) m/uL Hgb 9.1 L (11.4-16.0) gm/dL Hct 28.0 L (34.0-46.0) % Plt Count 570 H (150-450) k/uL Comprehensive Metabolic Panel 05/21/21 05/22/21 Range/Units 15:40 08:30 Sodium 133 L 136 L (137-145) mmol/L Potassium 4.1 4.4 (3.5-5.1) mmol/L Chloride 103 103 (98-107) mmol/L Carbon Dioxide 24 26 (22-30) mmol/L BUN 30 H 25 H (7-17) mg/dL Creatinine 0.80 0.80 (0.52-1.04) mg/dL Glucose 111 H 96 (74-99) mg/dL Calcium 9.1 9.2 (8.4-10.2) mg/dL AST 17 (14-36) U/L ALT 10 (4-34) U/L Alkaline Phosphatase 130 H (38-126) U/L Total Protein 5.5 L (6.3-8.2) g/dL Albumin 2.9 L (3.5-5.0) g/dL Current Medications Generic Name Dose Route Start Last Admin Trade Name Freq PRN Reason Stop Dose Admin Acetaminophen 650 mg 05/22/21 00:00 Acetaminophen Tab 325 Mg Tab PO Q8H PRN Pain Hydrocodone Bitart/Acetaminophen 1 each 05/21/21 23:55 05/22/21 01:20 Hydrocodone/Apap 5-325mg 1 Each Tab PO 1 each Q6H PRN Administration Pain Amlodipine Besylate 10 mg 05/22/21 08:00 05/22/21 07:43 Amlodipine 10 Mg Tab PO 10 mg DAILY@0800 JAIME Administration Cholecalciferol 25 mcg 05/22/21 08:00 05/22/21 07:34 Cholecalciferol 25 Mcg (1000 Iu) Tablet PO Not Given DAILY@0800 [facility] Ciprofloxacin 250 mg 05/22/21 09:00 05/22/21 07:43 Ciprofloxacin Hcl 250 Mg Tab PO 250 mg Q12H [facility] Administration Docusate Sodium 100 mg 05/22/21 09:00 05/22/21 07:33 Docusate 100 Mg Cap PO Not Given BID [facility] Famotidine 20 mg 05/22/21 09:00 05/22/21 07:33 Famotidine 20 Mg Tab PO Not Given Q12H [facility] Levothyroxine Sodium 50 mcg 05/22/21 06:30 05/22/21 05:58 Levothyroxine 50 Mcg Tab PO Not Given DAILY@0630 [facility] Lidocaine 1 patch 05/22/21 09:00 05/22/21 07:43 Lidocaine 5% Patch TOPICAL Not Given DAILY [facility] Protocol Polyethylene Glycol 17 gm 05/22/21 09:00 05/22/21 07:32 Polyethylene Glycol 3350 17 Gm Powd.Pack PO Not Given BID [facility] Intake and Output 05/21/21 05/22/21 05/22/21 22:59 06:59 14:59 Output Total 475 Balance -475 Output: Urine 475 Other: # Voids 2 Weight 49.895 kg 05/21/21 15:40 05/22/21 08:30
[2021-05-22] MEDS ORDERED: ERGOCALCIFEROL 1,250 MCG (50,000 IU) CAPSULE PO SCH (13:00)
--- NOTE | 2021-05-22 15:18 | P.CONS ---
History of Present Illness - Reason for Consult Consult date: 05/22/21 Requesting physician: Tico Hartley - History of Present Illness This is an 82-year-old female patient of Dr. Romulo Bullock with a previous medical history significant for hyperlipidemia, osteoarthritis, non-ST elevated myocardial infarction in with CABG January 2015 status post SHABAZZ to [facility] with Dr. Granados, hypothyroidism, irritable bowel syndrome, gastritis. She currently resides at [facility] off [address], for therapy. However patient has fallen down, and subsequently fractured her right intertrochanteric, displaced femur fracture. She does have chronic back pain, and uses a walker for community ambulation. Patient is confused, and cannot recollect any details of the events, she is currently being treated for urinary tract infection, using ciprofloxacin. EKG was reviewed, normal sinus rhythm heart rate 71, there is T-wave inversions in leads V3 to V6, chest x-ray shows no acute disease, sodium 133, creatinine 0.8, urine is turbid, over 182 wbc, MCV elevated at 100.8, WBC count of 6.0. INR of 1.0 he was seen by Dr. Hartley, for which they have recommended IM nailing, I requested cardiology see her, secondary to abnormal EKG, QC SCIENTIST proBNP requested, and troponin requested. Patient does not verbalize any chest pain shortness of breath, however she is disoriented today, as to place, she thinks she is in her old condo. And is a new baseline for her. Pain medication from home is Estero 5, no CPK is available for review, she is on not on statins significant se condary to significant statin intolerances, check for rhabdomyolysis, creatinine is stable Review of Systems Constitutional: Reports as per HPI, Denies anorexia, Denies chills, Denies chronic headaches, Denies chronic pain, Denies daytime sleepiness, Denies fa tigue, Denies fever, Denies lethargy, Denies malaise, Denies night sweats, Denies poor appetite, Denies sweats, Denies weakness, Denies weight gain, Denies weight loss Ears, nose, mouth and throat: Reports as per HPI, Denies ant. neck pain, Denies bleeding gums, Denies dental pain, Denies dysphagia, Denies epistaxis, Denies headache, Denies hoarseness, Denies mouth pain, Denies nasal congestion, Denies nasal discharge, Denies neck fullness/pressure, Denies neck lump, Denies nose pain, Denies odynophagia, Denies post-nasal drip, Denies sinus pain, Denies sinus pressure, Denies swelling in mouth, Denies swelling in throat, Denies sore throat, Denies vertigo, Denies voice changes Cardiovascular: Reports as per HPI, Denies chest pain, Denies dyspnea on exertion, Denies edema, Denies shortness of breath Respiratory: Reports as per HPI Genitourinary: Reports as per HPI, Reports dysuria, Reports stress incontinence, Reports urinary frequency Menstruation: Reports as per HPI, Reports postmenopausal Musculoskeletal: Reports as per HPI, Reports fractures, Reports limitation of motion, Reports low back pain, Denies hot joints, Denies neck stiffness, Denies shooting arm pain Neurological: Reports as per HPI Psychiatric: Reports as per HPI Endocrine: Reports as per HPI Hematologic/Lymphatic: Reports as per HPI Allergic/Immunologic: Reports as per HPI Past Medical History Past Medical History: Coronary Artery Disease (CAD), Chest Pain / Angina, GERD/Reflux, Hyperlipidemia, Musculoskeletal Disorder, Osteoarthritis (OA), Syncope, Thyroid Disorder Additional Past Medical History / Comment(s): Dementia, IBS, BENIGN POSITIONAL VERTIGO-has fainted before & has had low blood sugar readings after fainting, hypothyroidism, gastritis. recent sob & chest discomfort History of Any Multi-Drug Resistant Organisms: None Reported Past Surgical History: Breast Surgery, Coronary Bypass/CABG, Heart Catheteriza tion Additional Past Surgical History / Comment(s): Benign breast biopsies x 2 in the left side and one on the right., CABG IN 01/2015, egd Past Anesthesia/Blood Transfusion Reactions: No Reported Reaction Past Psychological History: No Psychological Hx Reported Smoking Status: Never smoker Past Alcohol Use History: Occasional Additional Past Alcohol Use History / Comment(s): Patient is a lifelong nonsmoker. No illicit drug use. She drinks a glass of wine wine a couple nights a week. Past Drug Use History: None Reported - Past Family History Father Family Medical History: Coronary Artery Disease (CAD), Myocardial Infarction ([place]) Additional Family Medical History / Comment(s): Father at age 65 from a myocardial infarction. Mother Family Medical History: Cancer Additional Family Medical History / Comment(s): Mother at age 85 from uterine cancer. Brother(s) Family Medical History: Coronary Artery Disease (CAD), Myocardial Infarction ([place]) Additional Family Medical History / Comment(s): Patient has 2 brothers and one has coronary artery disease and one of them is a plastic surgeon. The other one is an ENT surgeon. Sister(s) Family Medical History: No Reported History Additional Family Medical History / Comment(s): She has one sister with no major medical problems. Medications and Allergies Home Medications Medication Instructions Recorded Confirmed Type Cholecalciferol [Vitamin D3 (25 25 mcg PO DAILY@0800 01/24/15 05/21/21 History Mcg = 1000 Iu)] Docusate [Colace] 100 mg PO BID 01/09/18 05/21/21 History Levothyroxine Sodium [Synthroid] 50 mcg PO DAILY@0600 01/09/18 05/21/21 History Acetaminophen Tab [Tylenol] 650 mg PO Q8H PRN 05/21/21 05/21/21 History Aspirin 81 mg PO BID 05/21/21 05/21/21 History Ciprofloxacin HCl [Cipro] 250 mg PO Q12H 05/21/21 05/21/21 History Famotidine [Pepcid] 20 mg PO Q12H 05/21/21 05/21/21 History HYDROcodone/APAP 5-325MG [Estero 1 tab PO Q6H PRN 05/21/21 05/21/21 History 5-325] Lidocaine [Lidoderm 5% Patch] 1 patch TRANSDERM DAILY 05/21/21 05/21/21 History amLODIPine [Norvasc] 10 mg PO DAILY@0800 05/21/21 05/21/21 History polyethylene glycoL 3350 [Miralax] 17 gm PO BID 05/21/21 05/21/21 History Allergies Allergy/AdvReac Type Severity Reaction Status Date / Time meperidine HCl [From Demerol] Allergy Severe Anaphylaxis Verified 05/21/21 22:23 amiodarone Allergy Hallucinati Verified 05/21/21 22:23 ons codeine Allergy Unknown Verified 05/21/21 22:23 hydrocodone Allergy Unknown Verified 05/21/21 22:23 lansoprazole Allergy Unknown Verified 05/21/21 22:23 metoprolol Allergy Unknown Verified 05/21/21 22:23 omeprazole [From Prilosec] Allergy Abdominal Verified 05/21/21 22:23 Pain Penicillins Allergy Unknown Verified 05/21/21 22:23 pitavastatin [From Livalo] Allergy Abdominal Verified 05/21/21 22:23 Pain propranolol HCl Allergy Unknown Verified 05/21/21 22:23 [From Inderal LA] sucralfate Allergy Unknown Verified 05/21/21 22:23 tetracycline Allergy Unknown Verified 05/21/21 22:23 rosuvastatin [From Crestor] AdvReac Abdominal Verified 05/21/21 22:23 Pain Physical Exam Vitals: Vital Signs Temp Pulse Pulse Resp BP BP Pulse Ox 05/22/21 07:54 97.9 F 71 16 120/64 98 05/22/21 03:05 97.6 F 68 15 112/67 98 05/21/21 23:43 99.0 F 72 17 127/70 98 05/21/21 21:15 67 16 110/66 96 05/21/21 20:00 69 16 115/63 96 05/21/21 18:43 98.9 F 69 16 119/64 98 05/21/21 15:51 72 16 105/54 98 05/21/21 14:34 98.2 F 88 16 100/58 97 Intake and Output 05/21/21 05/22/21 05/22/21 22:59 06:59 14:59 Output Total 475 Balance -475 Output: Urine 475 Other: # Voids 2 Weight 49.895 kg - Constitutional General appearance: no acute distress, thin - EENT Eyes: anicteric sclerae, EOMI, PERRLA, dentition normal, normal appearance - Neck Carotids: bilateral: bruit absent Thyroid: bilateral: normal size - Respiratory Respiratory: bilateral: CTA, negative: diminished, dullness, rales - Cardiovascular Rhythm: regular Heart sounds: normal: S1, S2 Abnormal Heart Sounds: no diastolic murmur, no rub, no S3 Gallop, no S4 Gallop, no click, no other - Gastrointestinal General gastrointestinal: hepatomegaly, normal bowel sounds, soft - Integumentary Integumentary: decreased turgor, normal - Neurologic Neurologic: CNII-XII intact - Musculoskeletal Musculoskeletal: generalized weakness, strength equal bilaterally - Psychiatric Psychiatric: A&O x's 3, appropriate affect, intact judgment & insight Results CBC & Chem 7: 05/21/21 15:40 05/22/21 08:30 Labs: Abnormal Lab Results - Last 24 Hours (Table) 05/21/21 05/21/21 05/21/21 Range/Units 15:40 15:40 15:51 RBC 2.78 L (3.80-5.40) m/uL Hgb 9.1 L (11.4-16.0) gm/dL Hct 28.0 L (34.0-46.0) % MCV 100.8 H (80.0-100.0) fL Plt Count 570 H (150-450) k/uL Lymphocytes # 0.6 L (1.0-4.8) k/uL Sodium 133 L (137-145) mmol/L BUN 30 H (7-17) mg/dL Glucose 111 H (74-99) mg/dL Alkaline Phosphatase 130 H (38-126) U/L Total Protein 5.5 L (6.3-8.2) g/dL Albumin 2.9 L (3.5-5.0) g/dL Urine Appearance Turbid H (Clear) Urine Protein 1+ H (Negative) Urine Blood Large H (Negative) Ur Leukocyte Esterase Large H (Negative) Urine WBC >182 H (0-5) /hpf Urine WBC Clumps Many H (None) /hpf Urine Bacteria Many H (None) /hpf Urine Mucus Moderate H (None) /hpf Urine Yeast (Budding) Many H (None) /hpf 05/22/21 Range/Units 08:30 RBC (3.80-5.40) m/uL Hgb (11.4-16.0) gm/dL Hct (34.0-46.0) % MCV (80.0-100.0) fL Plt Count (150-450) k/uL Lymphocytes # (1.0-4.8) k/uL Sodium 136 L (137-145) mmol/L BUN 25 H (7-17) mg/dL Glucose (74-99) mg/dL Alkaline Phosphatase (38-126) U/L Total Protein (6.3-8.2) g/dL Albumin (3.5-5.0) g/dL Urine Appearance (Clear) Urine Protein (Negative) Urine Blood (Negative) Ur Leukocyte Esterase (Negative) Urine WBC (0-5) /hpf Urine WBC Clumps (None) /hpf Urine Bacteria (None) /hpf Urine Mucus (None) /hpf Urine Yeast (Budding) (None) /hpf Microbiology - Last 24 Hours (Table) 05/21/21 15:51 Urine Culture - Preliminary Urine,Clean Catch Laboratory Results WBC 6.0 k/uL (3.8-10.6) 05/21/21 15:40 RBC 2.78 m/uL (3.80-5.40) L 05/21/21 15:40 Hgb 9.1 gm/dL (11.4-16.0) L 05/21/21 15:40 Hct 28.0 % (34.0-46.0) L 05/21/21 15:40 MCV 100.8 fL (80.0-100.0) H 05/21/21 15:40 MCH 32.6 pg (25.0-35.0) 05/21/21 15:40 MCHC 32.4 g/dL (31.0-37.0) 05/21/21 15:40 RDW 14.8 % (11.5-15.5) 05/21/21 15:40 Plt Count 570 k/uL (150-450) H 05/21/21 15:40 MPV 7.0 05/21/21 15:40 Neutrophils % 79 % 05/21/21 15:40 Lymphocytes % 10 % 05/21/21 15:40 Monocytes % 6 % 05/21/21 15:40 Eosinophils % 3 % 05/21/21 15:40 Basophils % 1 % 05/21/21 15:40 Neutrophils # 4.7 k/uL (1.3-7.7) 05/21/21 15:40 Lymphocytes # 0.6 k/uL (1.0-4.8) L 05/21/21 15:40 Monocytes # 0.4 k/uL (0-1.0) 05/21/21 15:40 Eosinophils # 0.2 k/uL (0-0.7) 05/21/21 15:40 Basophils # 0.0 k/uL (0-0.2) 05/21/21 15:40 Hypochromasia Slight 05/21/21 15:40 Macrocytosis Slight 05/21/21 15:40 PT 10.5 sec (9.0-12.0) 05/21/21 15:40 INR 1.0 (<1.2) 05/21/21 15:40 APTT 22.5 sec (22.0-30.0) 05/21/21 15:40 Sodium 136 mmol/L (137-145) L 05/22/21 08:30 Potassium 4.4 mmol/L (3.5-5.1) 05/22/21 08:30 Chloride 103 mmol/L (98-107) 05/22/21 08:30 Carbon Dioxide 26 mmol/L (22-30) 05/22/21 08:30 Anion Gap 7 mmol/L 05/22/21 08:30 BUN 25 mg/dL (7-17) H 05/22/21 08:30 Creatinine 0.80 mg/dL (0.52-1.04) 05/22/21 08:30 Est GFR (CKD-EPI)AfAm 78 (>60 ml/min/1.73 sqM) 05/22/21 08:30 Est GFR (CKD-EPI)NonAf 68 (>60 ml/min/1.73 sqM) 05/22/21 08:30 Glucose 96 mg/dL (74-99) 05/22/21 08:30 Plasma Lactic Acid Leighton 0.8 mmol/L (0.7-2.0) 05/21/21 15:40 Calcium 9.2 mg/dL (8.4-10.2) 05/22/21 08:30 Magnesium 2.2 mg/dL (1.6-2.3) 05/21/21 15:40 Total Bilirubin 0.3 mg/dL (0.2-1.3) 05/21/21 15:40 AST 17 U/L (14-36) 05/21/21 15:40 ALT 10 U/L (4-34) 05/21/21 15:40 Alkaline Phosphatase 130 U/L (38-126) H 05/21/21 15:40 Troponin I <0.012 ng/mL (0.000-0.034) 05/21/21 15:40 Total Protein 5.5 g/dL (6.3-8.2) L 05/21/21 15:40 Albumin 2.9 g/dL (3.5-5.0) L 05/21/21 15:40 Urine Color Red 05/21/21 15:51 Urine Appearance Turbid (Clear) H 05/21/21 15:51 Urine pH 5.5 (5.0-8.0) 05/21/21 15:51 Ur Specific Eleele 1.021 (1.001-1.035) 05/21/21 15:51 Urine Protein 1+ (Negative) H 05/21/21 15:51 Urine Glucose (UA) Negative (Negative) 05/21/21 15:51 Urine Ketones Negative (Negative) 05/21/21 15:51 Urine Blood Large (Negative) H 05/21/21 15:51 Urine Nitrite Negative (Negative) 05/21/21 15:51 Urine Bilirubin Negative (Negative) 05/21/21 15:51 Urine Urobilinogen <2.0 mg/dL (<2.0) 05/21/21 15:51 Ur Leukocyte Esterase Large (Negative) H 05/21/21 15:51 Urine WBC >182 /hpf (0-5) H 05/21/21 15:51 Urine WBC Clumps Many /hpf (None) H 05/21/21 15:51 Urine Bacteria Many /hpf (None) H 05/21/21 15:51 Urine Mucus Moderate /hpf (None) H 05/21/21 15:51 Urine Yeast (Budding) Many /hpf (None) H 05/21/21 15:51 Blood Type O Positive 05/22/21 08:22 Blood Type Recheck O Pos 05/22/21 08:22 Bld Type Recheck Status No 05/22/21 08:22 Antibody Screen NEGATIVE 05/22/21 08:22 Spec Expiration Date 05/25/2021232105/22/21 08:22 Assessment and Plan Plan: 1. Right intertrochanteric displaced fracture, to have IM nailing to be done by orthopedic spine surgeon Dr. Hartley, she would need cardiac clearance by cardiology, echocardiogram, BNP, troponins, and CPK to evaluate for acute coronary event, as well as rhabdomyolysis. Patient's receive narcotics for pain management, on vitamin D 50,000 units every 7 days cardiac clearance would be ASA class II, however she does have a pre-existing CAD CABG in the past, RCRI of 1, compensated CHF most likely to be cleared, by cardiology for a low risk orthopedic procedure, requiring anesthesia 2. CAD with prior CABG in 2014, on amlodipine 10 mg daily, aspirin 81 mg daily, not on statin 3. Acute urinary tract infection, with delirium, Cipro 250 mg twice a day, await cultures 4. Hyperlipidemia. With known CAD risk factors, has significant statin intolerance 5, chronic pain, secondary to lumbar disc disease, on Estero 5325 every 6 when necessary lidocaine patch, 5. History of gastritis. Protonix. 6. Osteoarthritis mild in both hands. 7. Irritable bowel syndrome stable at this time. 8. Benign positional proximal vertigo in remission. 9. Hypothyroidism. Continue current dose of Synthroid. 9. GI prophylaxis will continue with current PPI. 10. DVT prophylaxis. Patient is on heparin
[2021-05-22 16:10] VITALS: BMI 17.7
[2021-05-23] MEDS: LEVOTHYROXINE 50 MCG TAB PO SCH (05:46)
[2021-05-23] MEDS: amLODIPine 10 MG TAB PO SCH (07:57)
[2021-05-23] MEDS: CIPROFLOXACIN HCL 250 MG TAB PO SCH (07:57)
[2021-05-23] MEDS: DOCUSATE 100 MG CAP PO SCH ×2 (07:58→22:39)
[2021-05-23] MEDS: LIDOCAINE 5% PATCH TOPICAL SCH (07:58)
[2021-05-23] MEDS: FAMOTIDINE 20 MG TAB PO SCH (07:58)
[2021-05-23] MEDS: CHOLECALCIFEROL 25 MCG (1000 IU) TABLET PO SCH (07:58)
[2021-05-23] MEDS: polyethylene glycoL 3350 17 GM POWD.PACK PO SCH ×2 (07:58→22:39)
--- NOTE | 2021-05-23 07:58 | P.PN ---
Progress Note - Text Progress Note Date: 05/23/21 Patient is seen and examined today. She has been cleared with medicine and cardiology and we will plan for surgical intervention today for her right hip. The patient has a right trochanteric displaced femur fracture we will plan for intramedullary elvia fixation of her right femur fracture today in the operating room. I again discussed this with her. She is somewhat confused but seems to understand. She'll be nothing by mouth today for surgery later today
--- NOTE | 2021-05-23 09:34 | ECHOF ---
Referral Reason:LV function. Preop clearance MEASUREMENTS -------- HEIGHT: 165.1 cm WEIGHT: 49.9 kg BP: RVIDd: 3.3 cm (< 3.3) IVSd: 1.1 cm (0.6 - 1.1) LVIDd: 3.8 cm (3.9 - 5.3) LVPWd: 1.0 cm (0.6 - 1.1) IVSs: 1.4 cm LVIDs: 2.4 cm LVPWs: 1.2 cm LA Diam: 4.4 cm (2.7 - 3.8) Ao Diam: 3.1 cm (2.0 - 3.7) AV Cusp: 1.6 cm (1.5 - 2.6) LA Diam: 4.6 cm (2.7 - 3.8) MV EXCURSION: 14.577 mm (> 18.000) MV EF SLOPE: 34 mm/s (70 - 150) EPSS: 0.2 cm MV E Andrea: 0.64 m/s MV DecT: 303 ms MV A Andrea: 1.07 m/s MV E/A Ratio: 0.60 RAP: 5.00 mmHg RVSP: 25.41 mmHg FINDINGS -------- Sinus rhythm. This was a technically good study. LV size, wall thickness and systolic function are normal, with an EF greater than 55%. The left brian tricular size is normal. The right ventricle is normal in size. The left atrium is mildly dilated. The right atrial size is normal. The aortic valve is trileaflet, and appears structurally normal. No aortic stenosis or regurgitation. Mild mitral regurgitation is present. Mild tricuspid regurgitation present. Right ventricular systolic pressure is normal at < 35 mmHg. There is no pulmonic regurgitation present. There is no pericardial effusion. CONCLUSIONS -------- 1. LV size, wall thickness and systolic function are normal, with an EF greater than 55%. 2. The left ventricular size is normal. 3. The right ventricle is normal in size. 4. The left atrium is mildly dilated. 5. The right atrial size is normal. 6. The aortic valve is trileaflet, and appears structurally normal. No aortic stenosis or regurgitati on. 7. Mild mitral regurgitation is present. 8. Mild tricuspid regurgitation present. 9. There is no pericardial effusion. PAPERHANGER: Maribel Arteaga RDCS
--- NOTE | 2021-05-23 13:01 | P.PN ---
Subjective Progress Note Date: 05/23/21 This is an 82-year-old female patient of Dr. 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 Granados, hypothyroidism, irritable bowel syndrome, gastritis. She currently resides at [facility] off [address], for therapy. However patient has fallen down, and subsequently fractured her right intertrochanteric, displaced femur fracture. She does have chronic back pain, and uses a walker for community ambulation. Patient is confused, and cannot recollect any details of the events, she is currently being treated for urinary tract infection, using ciprofloxacin. EKG was reviewed, normal sinus rhythm heart rate 71, there is T-wave inversions in leads V3 to V6, chest x-ray shows no acute disease, sodium 133, creatinine 0.8, urine is turbid, over 182 wbc, MCV elevated at 100.8, WBC count of 6.0. INR of 1.0 he was seen by Dr. Hartley, for which they have recommended IM nailing, I requested cardiology see her, secondary to abnormal EKG, MANAGEMENT ACCOUNTS MANAGER proBNP requested, and troponin requested. Patient does not verbalize any chest pain shortness of breath, however she is disoriented today, as to place, she thinks she is in her old condo. And is a new baseline for her. Pain medication from home is [place] 5, no CPK is available for review, she is on not on statins significant secondary to significant statin intolerances, check for rhabdomyolysis, c reatinine is stable /20: Patient is cleared by cardiology, echocardiogram shows EF of over 55%, wit hout any aortic stenosis, normal left ventricle systolic pressure, patient has no complaints today, except that she can't wait for surgery to be done to 4:00. Patient's updated regarding healing time, no nausea no vomiting, IV Rocephin started as the patient still has significant pyuria despite Cipro, awaiting cultures. Cipro discontinued. No fever no chills, folic catheter draining clear urine, patient's on DVT prophylaxis this time Review of Systems Constitutional: Reports as per HPI, Denies anorexia, Denies chills, Denies chronic headaches, Denies chronic pain, Denies daytime sleepiness, Denies fatigue, Denies fever, Denies lethargy, Denies malaise, Denies night sweats, Denies poor appetite, Denies sweats, Denies weakness, Denies weight gain, Denies weight loss Ears, nose, mouth and throat: Reports as per HPI, Denies ant. neck pain, Denies bleeding gums, Denies dental pain, Denies dysphagia, Denies epistaxis, Denies headache, Denies hoarseness, Denies mouth pain, Denies nasal congestion, Denies nasal discharge, Denies neck fullness/pressure, Denies neck lump, Denies nose pain, Denies odynophagia, Denies post-nasal drip, Denies sinus pain, Denies sinus pressure, Denies swelling in mouth, Denies swelling in throat, Denies sore throat, Denies vertigo, Denies voice changes Cardiovascular: Reports as per HPI, Denies chest pain, Denies dyspnea on exertion, Denies edema, Denies shortness of breath Respiratory: Reports as per HPI Genitourinary: Reports as per HPI, Reports dysuria, Reports stress incontinence, Reports urinary frequency Menstruation: Reports as per HPI, Reports postmenopausal Musculoskeletal: Reports as per HPI, Reports fractures, Reports limitation of motion, Reports low back pain, Denies hot joints, Denies neck stiffness, Denies shooting arm pain Neurological: Reports as per HPI Psychiatric: Reports as per HPI Endocrine: Reports as per HPI Hematologic/Lymphatic: Reports as per HPI Allergic/Immunologic: Reports as per HPI Objective - Vital Signs Vital signs: Vital Signs Temp 97.6 F 05/23/21 08:00 Pulse 70 05/23/21 08:00 Resp 18 05/23/21 08:00 BP 112/67 05/23/21 08:00 Pulse Ox 96 05/23/21 09:07 Intake & Output 05/22/21 05/23/21 05/23/21 18:59 06:59 18:59 Output Total 200 250 Balance -200 -250 Weight 49.895 kg Output: Urine 200 250 Other: Voiding Method Indwelling Catheter Indwelling Catheter - Constitutional General appearance: Present: cooperative, no acute distress - EENT Eyes: Present: EOMI, PERRLA - Neck Neck: Present: normal ROM - Respiratory Respiratory: bilateral: CTA, negative: diminished, dullness, rales - Cardiovascular Rhythm: regular Heart sounds: normal: S1, S2 Abnormal Heart Sounds: Absent: systolic murmur, diastolic murmur, rub, S3 Gallop, S4 Gallop, click, other - Gastrointestinal General gastrointestinal: Present: normal bowel sounds, soft - Integumentary Integumentary: Present: normal - Neurologic Neurologic: Present: CNII-XII intact - Musculoskeletal Musculoskeletal: Present: strength equal bilaterally - Psychiatric Psychiatric: Present: A&O x's 3, appropriate affect, intact judgment & insight - Labs CBC & Chem 7: 05/21/21 15:40 05/22/21 08:30 Labs: Microbiology - Last 24 Hours (Table) 05/21/21 15:51 Urine Culture - Preliminary Urine,Clean Catch Gram Neg Bacilli Assessment and Plan Plan: 1. Right intertrochanteric displaced fracture, to have IM nailing to be done by orthopedic spine surgeon Dr. Hartley, she would need cardiac clearance by cardiology, echocardiogram, BNP, troponins, and CPK to evaluate for acute coronary event, as well as rhabdomyolysis. Patient's receive narcotics for pain management, on vitamin D 50,000 units every 7 days cardiac clearance would be ASA class II, however she does have a pre-existing CAD CABG in the past, RCRI of 1, compensated CHF most likely to be cleared, by cardiology for a low risk orthopedic procedure, requiring anesthesia 2. CAD with prior CABG in 2014, on amlodipine 10 mg daily, aspirin 81 mg daily, not on statin any beta mima, ALLERGIES are noted 3. Acute urinary tract infection, with delirium, Cipro 250 mg twice a day did not improve pyuria, await cultures, discontinued Cipro, IV Rocephin, till cultures are done, 4. Hyperlipidemia. With known CAD risk factors, has significant statin intolerance 5, chronic pain, secondary to lumbar disc disease, on [place] 5325 every 6 when necessary lidocaine patch, 5. History of gastritis. Protonix. 6. Osteoarthritis mild in both hands. 7. Irritable bowel syndrome stable at this time. 8. Benign positional proximal vertigo in remission. 9. Hypothyroidism. Continue current dose of Synthroid. 9. GI prophylaxis will continue with current PPI. 10. DVT prophylaxis. Patient is on heparin
[2021-05-23] MEDS ORDERED: ONDANSETRON 4 MG/2 ML VIAL ONE (15:46)
[2021-05-23] MEDS ORDERED: LACTATED RINGERS 1,000 ML IV ONE ×2 (16:01→19:02)
[2021-05-23] MEDS ORDERED: ONDANSETRON 4 MG/2 ML VIAL IVP ONE (16:09)
[2021-05-23] MEDS ORDERED: MIDAZOLAM 2 MG/2 ML VIAL ONE (16:44)
[2021-05-23] MEDS ORDERED: KETAMINE 10 MG/ML 20 ML VIAL ONE (16:44)
[2021-05-23] MEDS ORDERED: fentaNYL (PF) 50 MCG/ML 2 ML AMP ONE (16:44)
[2021-05-23] MEDS ORDERED: SODIUM CHLORIDE 0.9% 50 ML with ceFAZolin 2,000 MG IV ONE ×2 (16:48)
[2021-05-23] MEDS ORDERED: ceFAZolin 1,000 MG in SODIUM CHLORIDE 0.9% 1,000 ML IRRIGATION ONE (17:34)
[2021-05-23] MEDS ORDERED: HYDROcodone/APAP 5-325MG 1 EACH TAB PO PRN (18:30)
[2021-05-23] MEDS ORDERED: HYDROmorphone 0.5 MG/0.5 ML SYRINGE IVP PRN (18:30)
[2021-05-23] MEDS ORDERED: SENNOSIDES-DOCUSATE SODIUM 1 EACH TAB PO PRN (18:30)
[2021-05-23] MEDS ORDERED: NALOXONE 0.4 MG/ML 1 ML VIAL IV PRN (18:31)
[2021-05-23] MEDS ORDERED: ONDANSETRON 4 MG/2 ML VIAL IVP PRN (18:32)
[2021-05-23] MEDS ORDERED: traMADol 50 MG TAB PO PRN (18:32)
[2021-05-23] MEDS ORDERED: Acetaminophen-Codeine 300-30mg TAB PO PRN (18:32)
--- NOTE | 2021-05-23 18:37 | P.OP ---
Date of Procedure: 05/23/21 Preoperative Diagnosis: Right hip intertrochanteric acute traumatic femur fracture Inability to ambulate due to fracture Postoperative Diagnosis: Same Anesthesia: spinal Pathology: other (Right proximal femoral reaming sent to pathology) Condition: stable Disposition: PACU Description of Procedure: Preoperative diagnosis: Right hip intertrochanteric acute traumatic femur fracture Inability to ambulate due to fracture Postoperative diagnosis: Same Procedure: intertrochanteric hip screw placement Use of fluoroscopic guidance Closed reduction Surgeon: Dr. Odilia Peterson.: assistant store leader who is present that the entire the case persistence during positioning dissection exposure placement of hardware and closure Anesthesia: Spinal per Dr. Kerr Estimated blood loss: Approximately 200 mL Components implanted: [employer]TAN intramedullary hip screw 125 by 11 with a 95 mm lag screw Disposition: To recovery room in good stable condition Operative indications The patient sustained a injury and suffered a hip fracture at the inter- trochanteric area of her femur which was displaced and angulated. We were involved in the case in regard to his hip fracture. Patient has some dementia and is still an ambulator with some assistance. She was neurologically intact and underwent medical and cardiac clearance. After evaluation it was determined that they would be a candidate for hip internal fixation and stabilization via surgical intervention. This would give them the best chance of mobilization and ambulation. We discussed the range of treatment options from conservative to surgical. They elected proceed with surgical intervention. We answered their questions to the best of our ability healing which they can understand. We discussed case with her power of caustic operator and family and the patient herself and They signed an informed consent. Operative summary After obtaining informed consent evaluation by anesthesia, preoperative evaluation and clearance for medical service, the patient was identified and prepped [place] area and the surgical site was marked. There brought to the op erating room where the given appropriate anesthesia by the anesthesia department in standard fashion without any complications. Once the anesthesia was established we were able to position the patient. The patient was placed on a fracture table with a well-padded perineal post. The operative side on the right was placed in a foot nassar stirrup which was well-padded well molded and placed in gentle in-line traction. The nonoperative leg on the left was placed in a padded stirrup. C-arm was brought in and we performed a closed reduction technique at the hip. We are able to get good alignment good position of the intertrochanteric fracture with gentle reduction techniques and traction utilizing the fracture table. Once patient was well positioned lower extremity was prepped and draped in normal standard sterile fashion. An appropriate keystone protocol and timeout was completed and were able to proceed with surgery. He started point just proximal to the greater trochanter was established and a median incision approximately 2 inches in length approximately to the greater trochanter. I dissected down through the fascia and I was able to expose the tip of the greater trochanter. A sharp starting hole was established at the tip of the greater trochanter near the junction of the anterior and middle third. Positioning was confirmed with C-arm guidance. I was able to start the awl into the bone and then use a guidepin at the starting point establish down to the level of the lesser trochanter at the intramedullary space. I then used a starting reamer for the greater trochanter placed over the guidepin and reamed down appropriately under C-arm guidance. I was unable to place a guidepin into the intramedullary aspect of the femur and then reamed appropriately to the ap propriate length. The positioning was confirmed on C-arm guidance. With the femur appropriately reamed I then chose the appropriate size intramedullary elvia which was connected to the appropriate jig. The jig was checked for alignment. The area was copiously irrigated and suctioned dry and we're able place the elvia at intramedullary space through the starting hole appropriately. It was seated down for appropriate position to align the leg pain into the femoral neck and head. A second incision was established at the site for the placement of the lag screw area and the guide was established at the lateral aspect of the femur and a guidepin was drilled into the femoral neck and head and near center center position. With this appropriate alignment and position where a reamer over the guidepin making sure not to penetrate the articular surface. The position was confirmed on C-arm guidance in AP and lateral positions. With this established we were able to place the appropriate size lag screw after measuring. Lag screw was placed into the femoral neck and head good alignment good position with excellent bony purchase. It was appropriately aligned and we placed a locking screw through the elvia appropriately and checked that the position was established. I was able to drill and place the compression screw immediately adjacent and inferior to the lag screw which gave good compression across the fracture site in good alignment and position. With the area in good position able place a distal locking screw. We utilized the guide sleeve a separate incision was made at the skin. The guide sleeve was placed in the lateral aspect of the femur and the distal locking screw hole was established through the femur and distal locking hole of the intramedullary elvia. It was measured appropriately and a distal locking screw was placed in good alignment and good position with excellent bony purchase. The position was checked to make sure it was through the appropriate hole in the intramedullary elvia. With this established we're able to remove the jig completely from the elvia and final images were taken which showed excellent alignment and position of the hardware and the fracture. With the elvia in place and the fracture stable, although the incision sites were copiously irrigated and suctioned dry. Good hemostasis was maintained. Deep fascial layers were closed with #1 Vicryl. Subcu tissue was closed with 2-0 Vicryl. Subcuticular tissues closed with 3-0 Vicryl. Was are cleaned and dried with dressed with excess skin glue and then up to follow dressing. Drapes were broken down, the hip was held in stable position with the post being removed safely once the positioning was stabilized. The patient was then transferred back to their hospital bed being careful to maintain the hip and C- spine alignment and airway. Once stable to patient was transferred back to the postanesthesia care unit to be readmitted for pain control and DVT prophylaxis medical management and monitoring and mobilization we will continue follow patient closely throughout their postoperative course.
[2021-05-23] MEDS: ACETAMINOPHEN TAB 325 MG TAB PO PRN (22:38)
[2021-05-24 00:15] LABS: Basophils % (A) 0 %; Eosinophils # (A) 0.2 k/uL (0-0.7); Eosinophils % (A) 2 %; HCT 28.7 % (34.0-46.0); HGB 9.4 gm/dL (11.4-16.0); Hypochromasia Slight; Lymphocytes # (A) 0.9 k/uL (1.0-4.8); Lymphocytes % (A) 9 %; MCH 33.2 pg (25.0-35.0); MCHC 32.8 g/dL (31.0-37.0); MCV 101.4 fL (80.0-100.0); Macrocytosis Slight; Mean Platelet Volume 7.3; Monocytes # (A) 0.4 k/uL (0-1.0); Monocytes % (A) 4 %; Neutrophils # (A) 8.1 k/uL (1.3-7.7); Neutrophils % (A) 84 %; Platelet Count 653 k/uL (150-450); RBC 2.83 m/uL (3.80-5.40); RDW 13.8 % (11.5-15.5); WBC 9.7 k/uL (3.8-10.6)
[2021-05-24] MEDS: ACETAMINOPHEN TAB 325 MG TAB PO PRN ×2 (05:37→15:46)
[2021-05-24] MEDS: SODIUM CHLORIDE 0.9% 1,000 ML IV SCH ×3 (05:39→22:03)
[2021-05-24] MEDS: LEVOTHYROXINE 50 MCG TAB PO SCH (06:03)
[2021-05-24] MEDS: DOCUSATE 100 MG CAP PO SCH ×2 (09:29→20:10)
[2021-05-24] MEDS: FAMOTIDINE 20 MG TAB PO SCH (09:29)
[2021-05-24] MEDS: CHOLECALCIFEROL 25 MCG (1000 IU) TABLET PO SCH (09:29)
[2021-05-24] MEDS: polyethylene glycoL 3350 17 GM POWD.PACK PO SCH ×2 (09:29→20:10)
[2021-05-24] MEDS: amLODIPine 10 MG TAB PO SCH (09:29)
[2021-05-24] MEDS: LIDOCAINE 5% PATCH TOPICAL SCH (09:32)
--- NOTE | 2021-05-24 10:03 | P.PN ---
Subjective Progress Note Date: 05/24/21 Principal diagnosis: Intertrochanteric fracture right hip. Status post closed reduction with insertion of intertrochanteric hip screw right. This is an 85-year-old female who is postop day #1 status post closed reduction with insertion of intramedullary hip screw of the right hip. She is confused. There are no new complaints or concerns today. Vital signs are stable. Objective - Vital Signs Vital signs: Vital Signs Temp 97.8 F 05/24/21 07:14 Pulse 76 05/24/21 07:14 Resp 16 05/24/21 07:14 BP 106/62 05/24/21 07:14 Pulse Ox 99 05/24/21 07:14 Intake & Output 05/23/21 05/24/21 05/24/21 18:59 06:59 18:59 Intake Total 851 740 Output Total 700 Balance 151 740 Weight 49.895 kg Intake: IV 851 200 Oral 540 Output: Urine 500 Estimated Blood Loss 200 Other: Voiding Method Indwelling Catheter Indwelling Catheter Indwelling Catheter - Exam This is a pleasant 85-year-old female in no acute distress. She is alert with confusion. Exam of the right hip reveals that her Optifoam dressing is intact. No surrounding erythema. She has full foot and ankle motion without difficulty or pain. No calf pain with palpation. Neurovascular status to the lower extremity is intact. - Labs CBC & Chem 7: 05/23/21 22:13 05/22/21 08:30 Labs: Abnormal Lab Results - Last 24 Hours (Table) 05/23/21 Range/Units 22:13 RBC 2.83 L (3.80-5.40) m/uL Hgb 9.4 L (11.4-16.0) gm/dL Hct 28.7 L (34.0-46.0) % MCV 101.4 H (80.0-100.0) fL Plt Count 653 H (150-450) k/uL Neutrophils # 8.1 H (1.3-7.7) k/uL Lymphocytes # 0.9 L (1.0-4.8) k/uL Microbiology - Last 24 Hours (Table) 05/21/21 15:51 Urine Culture - Final Urine,Clean Catch Escherichia coli Assessment and Plan (1) Fracture, intertrochanteric, right femur Current Visit: Yes Status: Acute Code(s): S72.141A - DISPLACED INTERTROCHANTERIC FRACTURE OF RIGHT FEMUR, INIT SNOMED Code(s): 861846782 Plan: The clinical findings are discussed with the patient and nursing staff. She may begin physical therapy today. Plan discharged to inpatient rehab Wednesday.
--- NOTE | 2021-05-24 17:22 | P.PN ---
Subjective Progress Note Date: 05/24/21 This is an 82-year-old female patient of Dr. 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 Granados, hypothyroidism, irritable bowel syndrome, gastritis. She currently resides at [facility] off [place], for therapy. However patient has fallen down, and subsequently fractured her right intertrochanteric, displaced femur fracture. She does have chronic back pain, and uses a walker for community ambulation. Patient is confused, and cannot recollect any details of the events, she is currently being treated for urinary tract infection, using ciprofloxacin. EKG was reviewed, normal sinus rhythm heart rate 71, there is T-wave inversions in leads V3 to V6, chest x-ray shows no acute disease, sodium 133, creatinine 0.8, urine is turbid, over 182 wbc, MCV elevated at 100.8, WBC count of 6.0. INR of 1.0 he was seen by Dr. 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 Patient does not verbalize any chest pain shortness of breath, however she is disoriented today, as to place, she thinks she is in her old condo. And is a new baseline for her. Pain medication from home is [place], no CPK is available for review, she is on not on statins significant secondary to significant statin intolerances, check for rhabdomyolysis, cre atinine is stable 05/23: Patient is cleared by cardiology, echocardiogram shows EF of over 55%, without any aortic stenosis, normal left ventricle systolic pressure, patient has no complaints today, except that she can't wait for surgery to be done to 4:00. Patient's updated regarding healing time, no nausea no vomiting, IV Rocephin started as the patient still has significant pyuria despite Cipro, awaiting cultures. Cipro discontinued. No fever no chills, folic catheter draining clear urine, patient's on DVT prophylaxis this time 05/24 patient examined bedside. Appears to be confused would like to go home to take care of her family. She does remember her date and is nausea is in the h ospital but does fluctuate from the conversation. Patient is alert and converses without drowsiness her aggressive behavior. Unclear if it if patient has underlying history of dementia. Patient is presently in delirium vitals are stable. No recent labs to compare. Pain is under control. Urinalysis is ordered to rule out UTI. Remeron initiated 7.5 mg to help patient sleep at night Review of Systems Constitutional: Reports as per HPI, Denies anorexia, Denies chills, Denies chronic headaches, Denies chronic pain, Denies daytime sleepiness, Denies fatigue, Denies fever, Denies lethargy, Denies malaise, Denies night sweats, Denies poor appetite, Denies sweats, Denies weakness, Denies weight gain, Denies weight loss Ears, nose, mouth and throat: Reports as per HPI, Denies ant. neck pain, Denies bleeding gums, Denies dental pain, Denies dysphagia, Denies epistaxis, Denies headache, Denies hoarseness, Denies mouth pain, Denies nasal congestion, Denies nasal discharge, Denies neck fullness/pressure, Denies neck lump, Denies nose pain, Denies odynophagia, Denies post-nasal drip, Denies sinus pain, Denies sinus pressure, Denies swelling in mouth, Denies swelling in throat, Denies sore throat, Denies vertigo, Denies voice changes Cardiovascular: Reports as per HPI, Denies chest pain, Denies dyspnea on exertion, Denies edema, Denies shortness of breath Respiratory: Reports as per HPI Genitourinary: Reports as per HPI, Reports dysuria, Reports stress incontinence, Reports urinary frequency Menstruation: Reports as per HPI, Reports postmenopausal Musculoskeletal: Reports as per HPI, Reports fractures, Reports limitation of motion, Reports low back pain, Denies hot joints, Denies neck stiffness, Denies shooting arm pain Neurological: Worsening confusion Reports as per HPI Psychiatric: Reports as per HPI Endocrine: Reports as per HPI Hematologic/Lymphatic: Reports as per HPI Allergic/Immunologic: Reports as per HPI - Constitutional General appearance: Present: cooperative, no acute distress - EENT Eyes: Present: EOMI, PERRLA - Neck Neck: Present: normal ROM - Respiratory Respiratory: bilateral: CTA, negative: diminished, dullness, rales - Cardiovascular Rhythm: regular Heart sounds: normal: S1, S2 Abnormal Heart Sounds: Positive for 2/6 systolic murmur, diastolic murmur, rub, S3 Gallop, S4 Gallop, click, other - Gastrointestinal General gastrointestinal: Present: normal bowel sounds, soft - Integumentary Integumentary: Present: normal - Neurologic Neurologic: Present: CNII-XII intact - Musculoskeletal Musculoskeletal: Present: strength equal bilaterally and dressing intact on the right hip no superficial bruising no surrounding inflammation or erythema noted neurovascular status intact bilateral lower extremity - Psychiatric Psychiatric: Present: A&O x's 3, appropriate affect, intact judgment & insight Assessment and plan 1. Postoperative day 1 Right intertrochanteric displaced fracture, status post intertrochanteric hip screw on 05/23 Dr. Hartley, pain control per primary to incentive spirometry for pulmonary prophylaxis 2. CAD with prior CABG in 2014, on amlodipine 10 mg daily, aspirin 81 mg daily, not on statin any beta mima, ALLERGIES are noted 3. Acute urinary tract infection, with delirium, Cipro 250 mg twice a day did not improve pyuria, culture suggestive of ESBL switched to ertapenem. Infectious disease consulted 4. Acute delirium Remeron initiated 7.5 at bedtime. Likely secondary to pain medication and underlying UTI 5. Hyperlipidemia. With known CAD risk factors, has significant statin intolerance 6, chronic pain, secondary to lumbar disc disease, on [place] 5325 every 6 when necessary lidocaine patch, 7. History of gastritis. Protonix. 8. Osteoarthritis mild in both hands. 9. Irritable bowel syndrome stable at this time. 10. Benign positional proximal vertigo in remission. 11. Hypothyroidism. Continue current dose of Synthroid. 12. GI prophylaxis will continue with current PPI. 13. DVT prophylaxis. Patient is on heparin Objective - Vital Signs Vital signs: Vital Signs Temp 97.8 F 05/24/21 14:00 Pulse 75 05/24/21 14:00 Resp 16 05/24/21 14:00 BP 105/69 05/24/21 14:00 Pulse Ox 97 05/24/21 14:00 Intake & Output 05/23/21 05/24/21 05/24/21 18:59 06:59 18:59 Intake Total 851 740 Output Total 700 520 Balance 151 740 -520 Weight 49.895 kg Intake: IV 851 200 Oral 540 Output: Urine 500 520 Uretheral ([place]) 520 Estimated Blood Loss 200 Other: Voiding Method Indwelling Catheter Indwelling Catheter Indwelling Catheter - Labs CBC & Chem 7: 05/23/21 22:13 05/22/21 08:30 Labs: Abnormal Lab Results - Last 24 Hours (Table) 05/23/21 Range/Units 22:13 RBC 2.83 L (3.80-5.40) m/uL Hgb 9.4 L (11.4-16.0) gm/dL Hct 28.7 L (34.0-46.0) % MCV 101.4 H (80.0-100.0) fL Plt Count 653 H (150-450) k/uL Neutrophils # 8.1 H (1.3-7.7) k/uL Lymphocytes # 0.9 L (1.0-4.8) k/uL Microbiology - Last 24 Hours (Table) 05/21/21 15:51 Urine Culture - Final Urine,Clean Catch Escherichia coli
[2021-05-24] MEDS: ERTAPENEM 1 GM in SODIUM CHLORIDE 0.9% 50 ML IVPB SCH (19:02)
[2021-05-24] MEDS: MIRTAZAPINE 15 MG TAB PO SCH (20:09)
[2021-05-25 00:10] LABS: Appearance,Urine Cloudy (Clear); Bacteria,Urine Occasional /hpf; Bilirubin,Urine Negative (Negative); Blood,Urine Large (Negative); Color,Urine Yellow; Glucose,Urine (UA) Negative (Negative); Ketones,Urine Trace (Negative); Leukocyte Esterase,Urine Large (Negative); Mucus,Urine Rare /hpf; Nitrite,Urine Negative (Negative); Protein,Urine Trace (Negative); RBC,Urine 75 /hpf (0-5); Specific Gravity,Urine 1.017 (1.001-1.035); Squamous Epithelial Cell,Urine <1 /hpf (0-4); Urobilinogen,Urine <2.0 mg/dL (<2.0); WBC,Urine 102 /hpf (0-5)
[2021-05-25] MEDS: LEVOTHYROXINE 50 MCG TAB PO SCH (05:34)
[2021-05-25] MEDS: SODIUM CHLORIDE 0.9% 1,000 ML IV SCH ×3 (05:34→22:50)
[2021-05-25] MEDS: CHOLECALCIFEROL 25 MCG (1000 IU) TABLET PO SCH (08:42)
[2021-05-25] MEDS: DOCUSATE 100 MG CAP PO SCH ×2 (08:42→19:59)
[2021-05-25] MEDS: FAMOTIDINE 20 MG TAB PO SCH (08:42)
[2021-05-25] MEDS: ACETAMINOPHEN TAB 325 MG TAB PO PRN ×2 (08:42→17:17)
[2021-05-25] MEDS: polyethylene glycoL 3350 17 GM POWD.PACK PO SCH ×2 (08:47→19:59)
[2021-05-25] MEDS ORDERED: SODIUM CHLORIDE 0.9% 1,000 ML IV ONE (08:55)
[2021-05-25] MEDS: amLODIPine 10 MG TAB PO SCH (08:57)
--- NOTE | 2021-05-25 10:27 | FL ---
Fluoroscopy History: IT NAILING R IT NAILING. DR DAUGHERTY. FL TIME 1 MIN 32 SEC. 3 IMAGES SCANNED
[2021-05-25 10:47] LABS: ALT 6 U/L (4-34); AST 14 U/L (14-36); African American GFR (CKD) 73 (>60 ml/min/1.73 sqM); Albumin 2.5 g/dL (3.5-5.0); Alkaline Phosphatase 147 U/L (38-126); Anion Gap 4 mmol/L; Blood Urea Nitrogen 17 mg/dL (7-17); Calcium 8.4 mg/dL (8.4-10.2); Carbon Dioxide 24 mmol/L (22-30); Chloride 106 mmol/L (98-107); Globulin 2.4 g/dL; Glucose 89 mg/dL (74-99); Non-African American GFR(CKD) 63 (>60 ml/min/1.73 sqM); Sodium 134 mmol/L (137-145); Total Bilirubin 0.2 mg/dL (0.2-1.3); Total Protein 4.9 g/dL (6.3-8.2)
[2021-05-25] MEDS: ERTAPENEM 1 GM in SODIUM CHLORIDE 0.9% 50 ML IVPB SCH (10:49)
[2021-05-25 11:05] LABS: Basophils # (A) 0.02 X 10*3/uL (0.00-0.10); Basophils % (A) 0.4 %; Eosinophils % (A) 1.8 %; HCT 22.7 % (37.2-46.3); HGB 7.2 g/dL (12.0-15.0); Lymphocytes # (A) 0.51 X 10*3/uL (0.90-5.00); Lymphocytes % (A) 8.9 %; MCH 32.6 pg (27.0-32.0); MCHC 31.7 g/dL (32.0-37.0); MCV 102.7 fL (80.0-97.0); Mean Platelet Volume 8.5 fL (9.5-12.2); Monocytes # (A) 0.47 X 10*3/uL (0.20-1.00); Monocytes % (A) 8.2 %; Neutrophils # (A) 4.56 X 10*3/uL (1.80-7.70); Neutrophils % (A) 79.8 %; Platelet Count 510 X 10*3/uL (140-440); RBC 2.21 X 10*6/uL (4.10-5.20); RDW 14.3 % (11.5-14.5); WBC 5.71 X 10*3/uL (4.50-10.00)
--- NOTE | 2021-05-25 11:59 | P.PN ---
Subjective Progress Note Date: 05/25/21 Principal diagnosis: Intertrochanteric fracture right hip. Status post closed reduction with insertion of intertrochanteric hip screw right. This is an 85-year-old female who is postop day #2 status post closed reduction with insertion of intramedullary hip screw of the right hip. She is confused. There are no new complaints or concerns today. Vital signs are stable. Objective - Vital Signs Vital signs: Vital Signs Temp 98.2 F 05/25/21 08:00 Pulse 72 05/25/21 10:50 Resp 18 05/25/21 08:00 BP 122/61 05/25/21 10:50 Pulse Ox 95 05/25/21 10:50 Intake & Output 05/24/21 05/25/21 05/25/21 18:59 06:59 18:59 Intake Total 600 100 Output Total 520 500 Balance 80 -400 Intake: IV 600 Sodium Chloride 0.9% 1, 600 000 ml @ 75 mls/hr IV . [id number] JAIME Rx#:[id number] Oral 100 Output: Urine 520 500 Uretheral ([place]) 520 Other: Voiding Method Indwelling Catheter Indwelling Catheter Indwelling Catheter # Voids 2 - Exam This is a pleasant 85-year-old female in no acute distress. She is sleepy today with confusion. Exam of the right hip reveals that her Optifoam dressing is intact. No surrounding erythema. She has full foot and ankle motion without difficulty or pain. No calf pain with palpation. Neurovascular status to the lower extremity is intact. - Labs CBC & Chem 7: 05/25/21 06:40 05/25/21 06:40 Labs: Abnormal Lab Results - Last 24 Hours (Table) 05/24/21 05/25/21 05/25/21 Range/Units 23:15 06:40 06:40 RBC 2.21 L (4.10-5.20) X 10*6/uL Hgb 7.2 L (12.0-15.0) g/dL Hct 22.7 L (37.2-46.3) % MCV 102.7 H (80.0-97.0) fL MCH 32.6 H (27.0-32.0) pg MCHC 31.7 L (32.0-37.0) g/dL Plt Count 510 H (140-440) X 10*3/uL MPV 8.5 L (9.5-12.2) fL Immature Gran # 0.05 H (0.00-0.04) X 10*3/uL Lymphocytes # 0.51 L (0.90-5.00) X 10*3/uL Sodium 134 L (137-145) mmol/L Alkaline Phosphatase 147 H (38-126) U/L Total Protein 4.9 L (6.3-8.2) g/dL Albumin 2.5 L (3.5-5.0) g/dL Urine Appearance Cloudy H (Clear) Urine Protein Trace H (Negative) Urine Ketones Trace H (Negative) Urine Blood Large H (Negative) Ur Leukocyte Esterase Large H (Negative) Urine RBC 75 H (0-5) /hpf Urine WBC 102 H (0-5) /hpf Urine WBC Clumps Few H (None) /hpf Urine Bacteria Occasional H (None) /hpf Urine Mucus Rare H (None) /hpf Assessment and Plan (1) Fracture, intertrochanteric, right femur Current Visit: Yes Status: Acute Code(s): S72.141A - DISPLACED INTERTROCHANTERIC FRACTURE OF RIGHT FEMUR, INIT SNOMED Code(s): 108145045 Plan: The clinical findings are discussed with the patient and nursing staff. She is to continue with physical therapy today. Plan discharged to inpatient rehab Wednesday.
[2021-05-25] MEDS: LIDOCAINE 5% PATCH TOPICAL SCH (12:49)
--- NOTE | 2021-05-25 13:10 | P.PN ---
Subjective Progress Note Date: 05/25/21 This is an 82-year-old female patient of Dr. 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 Granados, hypothyroidism, irritable bowel syndrome, gastritis. She currently resides at [facility] off [address], for therapy. However patient has fallen down, and subsequently fractured her right intertrochanteric, displaced femur fracture. She does have chronic back pain, and uses a walker for community ambulation. Patient is confused, and cannot recollect any details of the events, she is currently being treated for urinary tract infection, using ciprofloxacin. EKG was reviewed, normal sinus rhythm heart rate 71, there is T-wave inversions in leads V3 to V6, chest x-ray shows no acute disease, sodium 133, creatinine 0.8, urine is turbid, over 182 wbc, MCV elevated at 100.8, WBC count of 6.0. INR of 1.0 he was seen by Dr. 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 Patient does not verbalize any chest pain shortness of breath, however she is disoriented today, as to place, she thinks she is in her old condo. And is a new baseline for her. Pain medication from home is [place] 5, no CPK is available for review, she is on not on statins significant secondary to significant statin intolerances, check for rhabdomyolysis, cre atinine is stable 05/23: Patient is cleared by cardiology, echocardiogram shows EF of over 55%, without any aortic stenosis, normal left ventricle systolic pressure, patient has no complaints today, except that she can't wait for surgery to be done to 4:00. Patient's updated regarding healing time, no nausea no vomiting, IV Rocephin started as the patient still has significant pyuria despite Cipro, awaiting cultures. Cipro discontinued. No fever no chills, folic catheter draining clear urine, patient's on DVT prophylaxis this time 05/24 patient examined bedside. Appears to be confused would like to go home to take care of her family. She does remember her date and is nausea is in the h ospital but does fluctuate from the conversation. Patient is alert and converses without drowsiness her aggressive behavior. Unclear if it if patient has underlying history of dementia. Patient is presently in delirium vitals are stable. No recent labs to compare. Pain is under control. Urinalysis is ordered to rule out UTI. Remeron initiated 7.5 mg to help patient sleep at night 05/25 patient examined bedside. He appears to be pleasantly confused. She does not know where she is and what the month his. UA suggestive of infection patient does have ESBL. Initiated ertapenem1 gm iv dialy. Patient is disease consulted. Labs are reviewed patient's hemoglobin has dropped to 7.2 MCV 1-102 platelets 510. Iron studies ordered. Vitals are stable. Plan for IP versus subacute rehab on Wednesday Review of Systems Constitutional: Reports as per HPI, Denies anorexia, Denies chills, Denies chronic headaches, Denies chronic pain, Denies daytime sleepiness, Denies fatigue, Denies fever, Denies lethargy, Denies malaise, Denies night sweats, Denies poor appetite, Denies sweats, Denies weakness, Denies weight gain, Denies weight loss Ears, nose, mouth and throat: Reports as per HPI, Denies ant. neck pain, Denies bleeding gums, Denies dental pain, Denies dysphagia, Denies epistaxis, Denies headache, Denies hoarseness, Denies mouth pain, Denies nasal congestion, Denies nasal discharge, Denies neck fullness/pressure, Denies neck lump, Denies nose pain, Denies odynophagia, Denies post-nasal drip, Denies sinus pain, Denies sinus pressure, Denies swelling in mouth, Denies swelling in throat, Denies sore throat, Denies vertigo, Denies voice changes Cardiovascular: Reports as per HPI, Denies chest pain, Denies dyspnea on exertion, Denies edema, Denies shortness of breath Respiratory: Reports as per HPI Genitourinary: Reports as per HPI, Reports dysuria, Reports stress incontinence, Reports urinary frequency Menstruation: Reports as per HPI, Reports postmenopausal Musculoskeletal: Reports as per HPI, Reports fractures, Reports limitation of motion, Reports low back pain, Denies hot joints, Denies neck stiffness, Denies shooting arm pain Neurological: Worsening confusion Reports as per HPI Psychiatric: Reports as per HPI Endocrine: Reports as per HPI Hematologic/Lymphatic: Reports as per HPI Allergic/Immunologic: Reports as per HPI - Constitutional General appearance: Present: cooperative, no acute distress - EENT Eyes: Present: EOMI, PERRLA - Neck Neck: Present: normal ROM - Respiratory Respiratory: bilateral: CTA, negative: diminished, dullness, rales - Cardiovascular Rhythm: regular Heart sounds: normal: S1, S2 Abnormal Heart Sounds: Positive for 2/6 systolic murmur, diastolic murmur, rub, S3 Gallop, S4 Gallop, click, other - Gastrointestinal General gastrointestinal: Present: normal bowel sounds, soft - Integumentary Integumentary: Present: normal - Neurologic Neurologic: Present: CNII-XII intact - Musculoskeletal Musculoskeletal: Present: strength equal bilaterally and dressing intact on the right hip no superficial bruising no surrounding inflammation or erythema noted neurovascular status intact bilateral lower extremity - Psychiatric Psychiatric: Present: A&O x's 3, appropriate affect, intact judgment & insight Assessment and plan 1. Postoperative day 2 Right intertrochanteric displaced fracture, status post intertrochanteric hip screw on 05/23 Dr. Hartley, pain control per primary to incentive spirometry for pulmonary prophylaxis 2. CAD with prior CABG in 2014, on amlodipine 10 mg daily, aspirin 81 mg daily, not on statin any beta mima, ALLERGIES are noted 3. Acute urinary tract infection, with delirium, Cipro 250 mg twice a day did not improve pyuria, culture suggestive of ESBL switched to ertapenem. Infectious disease consulted 4. Acute delirium Remeron initiated 7.5 at bedtime. Likely secondary to pain medication and underlying UTI 5. Hyperlipidemia. With known CAD risk factors, has significant statin intolerance 6, chronic pain, secondary to lumbar disc disease, on [place] 5325 every 6 when necessary lidocaine patch, 7. History of gastritis. Protonix. 8. Osteoarthritis mild in both hands. 9. Irritable bowel syndrome stable at this time. 10. Benign positional proximal vertigo in remission. 11. Hypothyroidism. Continue current dose of Synthroid. 12. GI prophylaxis will continue with current PPI. 13. DVT prophylaxis. Patient is on heparin Objective - Vital Signs Vital signs: Vital Signs Temp 98.2 F 05/25/21 08:00 Pulse 72 05/25/21 10:50 Resp 18 05/25/21 08:00 BP 122/61 08/22/21 10:50 Pulse Ox 95 05/25/21 10:50 Intake & Output 05/24/21 05/25/21 05/25/21 18:59 06:59 18:59 Intake Total 600 100 Output Total 520 500 Balance 80 -400 Intake: IV 600 Sodium Chloride 0.9% 1, 600 000 ml @ 75 mls/hr IV . [id number] [facility] Rx#:[id number] Oral 100 Output: Urine 520 500 Uretheral (Lees) 520 Other: Voiding Method Indwelling Catheter Indwelling Catheter Indwelling Catheter # Voids 2 - Labs CBC & Chem 7: 05/25/21 06:40 05/25/21 06:40 Labs: Abnormal Lab Results - Last 24 Hours (Table) 05/24/21 05/25/21 05/25/21 Range/Units 23:15 06:40 06:40 RBC 2.21 L (4.10-5.20) X 10*6/uL Hgb 7.2 L (12.0-15.0) g/dL Hct 22.7 L (37.2-46.3) % MCV 102.7 H (80.0-97.0) fL MCH 32.6 H (27.0-32.0) pg MCHC 31.7 L (32.0-37.0) g/dL Plt Count 510 H (140-440) X 10*3/uL MPV 8.5 L (9.5-12.2) fL Immature Gran # 0.05 H (0.00-0.04) X 10*3/uL Lymphocytes # 0.51 L (0.90-5.00) X 10*3/uL Sodium 134 L (137-145) mmol/L Alkaline Phosphatase 147 H (38-126) U/L Total Protein 4.9 L (6.3-8.2) g/dL Albumin 2.5 L (3.5-5.0) g/dL Urine Appearance Cloudy H (Clear) Urine Protein Trace H (Negative) Urine Ketones Trace H (Negative) Urine Blood Large H (Negative) Ur Leukocyte Esterase Large H (Negative) Urine RBC 75 H (0-5) /hpf Urine WBC 102 H (0-5) /hpf Urine WBC Clumps Few H (None) /hpf Urine Bacteria Occasional H (None) /hpf Urine Mucus Rare H (None) /hpf
[2021-05-25 16:29] LABS: Ferritin 212.7 ng/mL (10.0-291.0)
[2021-05-25 16:47] LABS: % Iron Saturation 8.82 (12.00-45.00)
[2021-05-25] MEDS: MIRTAZAPINE 15 MG TAB PO SCH (19:59)
[2021-05-26] MEDS: LEVOTHYROXINE 50 MCG TAB PO SCH (05:52)
--- NOTE | 2021-05-26 07:49 | P.CONS ---
History of Present Illness - Reason for Consult Consult date: 05/25/21 ESBL E. coli urinary tract infection Requesting physician: Raul Dumont - Chief Complaint Hip pain x few days - History of Present Illness Patient is 85-year female presenting to the hospital about 5 days ago from a correction after apparently the patient did have a fall a week ago and the patient complaining of right hip pain patient also noticed to have some hematuria with the start of the patient has been evaluated by ER physician on arrival to the hospital patient did have a x-rays of the pelvis with evidence of acute intertrochanteric fracture of the right femur patient subsequently has been evaluated by orthopedic surgery and the patient is status post intratrochanteric hip screw placement and close reduction patient did not have any fever during this admission she did have a normal white count urine was done on the which came back positive with ESBL E. coli patient did have repeat urine obtained she was started on Invanz infectious he was consulted for further management patient did have Lees catheter placement during this admission however the patient did have some hematuria has mentioned earlier but no difficulty urination suprapubic or flank discomfort no nausea no vomiting Review of Systems Positive point has been mentioned in the HPI rest of the systems are negative Past Medical History Past Medical History: Coronary Artery Disease (CAD), Chest Pain / Angina, GERD/Reflux, Hyperlipidemia, Musculoskeletal Disorder, Osteoarthritis (OA), Syncope, Thyroid Disorder Additional Past Medical History / Comment(s): Dementia, IBS, BENIGN POSITIONAL VERTIGO-has fainted before & has had low blood sugar readings after fainting, hypothyroidism, gastritis. recent sob & chest discomfort History of Any Multi-Drug Resistant Organisms: None Reported Past Surgical History: Breast Surgery, Coronary Bypass/CABG, Heart Catheterization Additional Past Surgical History / Comment(s): Benign breast biopsies x 2 in the left side and one on the right., CABG IN 01/2015, egd Past Anesthesia/Blood Transfusion Reactions: No Reported Reaction Past Psychological History: No Psychological Hx Reported Smoking Status: Never smoker Past Alcohol Use History: Occasional Additional Past Alcohol Use History / Comment(s): Patient is a lifelong nonsmoker. No illicit drug use. She drinks a glass of wine wine a couple nights a week. Past Drug Use History: None Reported - Past Family History Father Family Medical History: Coronary Artery Disease (CAD), Myocardial Infarction (MT) Additional Family Medical History / Comment(s): Father at age 65 from a myocardial infarction. Mother Family Medical History: Cancer Additional Family Medical History / Comment(s): Mother at age 85 from uterine cancer. Brother(s) Family Medical History: Coronary Artery Disease (CAD), Myocardial Infarction (MT) Additional Family Medical History / Comment(s): Patient has 2 brothers and one has coronary artery disease and one of them is a plastic surgeon. The other one is an ENT surgeon. Sister(s) Family Medical History: No Reported History Additional Family Medical History / Comment(s): She has one sister with no major medical problems. Medications and Allergies Home Medications Medication Instructions Recorded Confirmed Type Cholecalciferol [Vitamin D3 (25 25 mcg PO DAILY@0800 01/24/15 05/21/21 History Mcg = 1000 Iu)] Docusate [Colace] 100 mg PO BID 01/09/18 05/21/21 History Levothyroxine Sodium [Synthroid] 50 mcg PO DAILY@0600 01/09/18 05/21/21 History Acetaminophen Tab [Tylenol] 650 mg PO Q8H PRN 05/21/21 05/21/21 History Aspirin 81 mg PO BID 05/21/21 05/21/21 History Ciprofloxacin HCl [Cipro] 250 mg PO Q12H 05/21/21 05/21/21 History Famotidine [Pepcid] 20 mg PO Q12H 05/21/21 05/21/21 History HYDROcodone/APAP 5-325MG [[place] 1 tab PO Q6H PRN 05/21/21 05/21/21 History 5-325] Lidocaine [Lidoderm 5% Patch] 1 patch TRANSDERM DAILY 05/21/21 05/21/21 History amLODIPine [Norvasc] 10 mg PO DAILY@0800 05/21/21 05/21/21 History polyethylene glycoL 3350 [Miralax] 17 gm PO BID 05/21/21 05/21/21 History Allergies Allergy/AdvReac Type Severity Reaction Status Date / Time meperidine HCl [From Demerol] Allergy Severe Anaphylaxis Verified 05/21/21 22:23 amiodarone Allergy Hallucinati Verified 05/21/21 22:23 ons codeine Allergy Unknown Verified 05/21/21 22:23 hydrocodone Allergy Unknown Verified 05/21/21 22:23 lansoprazole Allergy Unknown Verified 05/21/21 22:23 metoprolol Allergy Unknown Verified 05/21/21 22:23 omeprazole [From Prilosec] Allergy Abdominal Verified 05/21/21 22:23 Pain Penicillins Allergy Unknown Verified 05/21/21 22:23 pitavastatin [From Livalo] Allergy Abdominal Verified 05/21/21 22:23 Pain propranolol HCl Allergy Unknown Verified 05/21/21 22:23 [From Inderal LA] sucralfate Allergy Unknown Verified 05/21/21 22:23 tetracycline Allergy Unknown Verified 05/21/21 22:23 rosuvastatin [From Crestor] AdvReac Abdominal Verified 05/21/21 22:23 Pain Physical Exam Vitals: Vital Signs Temp Pulse Pulse Resp BP BP Pulse Ox 05/25/21 10:50 72 122/61 95 05/25/21 08:45 79 96/55 97 05/25/21 08:19 92 L 05/25/21 08:00 98.2 F 74 18 104/58 96 05/25/21 02:00 97.4 F L 74 16 106/60 95 05/24/21 20:00 72 74 16 05/24/21 19:54 98.6 F 74 16 99/58 95 05/24/21 14:00 97.8 F 75 16 105/69 97 Intake and Output 05/24/21 05/25/21 05/25/21 22:59 06:59 14:59 Intake Total 600 100 Output Total 500 Balance 600 -400 Intake: IV 600 Sodium Chloride 0.9% 1, 600 000 ml @ 75 mls/hr IV . [id number] [facility] Rx#:[id number] Oral 100 Output: Urine 500 Other: Voiding Method Indwelling Catheter Indwelling Catheter # Voids 2 GENERAL DESCRIPTION: An elderly female lying in bed, no distress. No tachypnea or accessory muscle of respiration use. HEENT: Shows Pallor , no scleral icterus. Oral mucous membrane is dry. No pharyngeal erythema or thrush NECK: Trachea central, no thyromegaly. LUNGS: Unlabored breathing. Clear to auscultation anteriorly. No wheeze or crackle. HEART: S1, S2, regular rate and rhythm. No loud murmur ABDOMEN: Soft, no tenderness , guarding or rigidity, no organomegaly EXTREMITIES: No edema of feet. SKIN: No rash, no masses palpable. NEUROLOGICAL: The patient is awake, alert, oriented x3, mood and affect normal. Results CBC & Chem 7: 05/25/21 06:40 05/25/21 06:40 Labs: Abnormal Lab Results - Last 24 Hours (Table) 05/24/21 05/25/21 05/25/21 Range/Units 23:15 06:40 06:40 RBC 2.21 L (4.10-5.20) X 10*6/uL Hgb 7.2 L (12.0-15.0) g/dL Hct 22.7 L (37.2-46.3) % MCV 102.7 H (80.0-97.0) fL MCH 32.6 H (27.0-32.0) pg MCHC 31.7 L (32.0-37.0) g/dL Plt Count 510 H (140-440) X 10*3/uL MPV 8.5 L (9.5-12.2) fL Immature Gran # 0.05 H (0.00-0.04) X 10*3/uL Lymphocytes # 0.51 L (0.90-5.00) X 10*3/uL Sodium 134 L (137-145) mmol/L Alkaline Phosphatase 147 H (38-126) U/L Total Protein 4.9 L (6.3-8.2) g/dL Albumin 2.5 L (3.5-5.0) g/dL Urine Appearance Cloudy H (Clear) Urine Protein Trace H (Negative) Urine Ketones Trace H (Negative) Urine Blood Large H (Negative) Ur Leukocyte Esterase Large H (Negative) Urine RBC 75 H (0-5) /hpf Urine WBC 102 H (0-5) /hpf Urine WBC Clumps Few H (None) /hpf Urine Bacteria Occasional H (None) /hpf Urine Mucus Rare H (None) /hpf Assessment and Plan Assessment: patient has a positive urine culture with ESBL E. coli in this patient admitted to the hospital after patient did have a fall with the right hip intertrochante chris fracture she did have hematuria on admission and urine retention possible for the patient did have Lees catheter in place and could be a component of symptomatic cystitis clinically not behaving as a deep infection such as pyelonephritis (1) UTI due to extended-spectrum beta lactamase (ESBL) producing Escherichia coli Current Visit: Yes Status: Acute Code(s): N39.0 - URINARY TRACT INFECTION, SITE NOT SPECIFIED; B96.29 - OTH ESCHERICHIA COLI THE CAUSE OF DISEASES CLASSD ELSWHR; Z16.12 - EXTENDED SPECTRUM BETA LACTAMASE (ESBL) RESISTANCE SNOMED Code(s): 556762524 Plan: 1-try to discontinue Lees catheter if possible to decrease the risk of persistent and recurrent infection 2-Invanz 1 g daily plan is for 3 to 5 days of treatment We will follow on clinical condition and cultures to further adjust medication if needed Thank you for this consultation we will follow the patient along with you Time with Patient: Greater than 30
[2021-05-26] MEDS: ERTAPENEM 1 GM in SODIUM CHLORIDE 0.9% 50 ML IVPB SCH (09:26)
[2021-05-26] MEDS: LIDOCAINE 5% PATCH TOPICAL SCH (09:26)
[2021-05-26] MEDS: FAMOTIDINE 20 MG TAB PO SCH (09:27)
[2021-05-26] MEDS: DOCUSATE 100 MG CAP PO SCH (09:27)
[2021-05-26] MEDS: polyethylene glycoL 3350 17 GM POWD.PACK PO SCH (09:27)
[2021-05-26] MEDS: amLODIPine 10 MG TAB PO SCH (09:28)
[2021-05-26] MEDS: CHOLECALCIFEROL 25 MCG (1000 IU) TABLET PO SCH (09:28)
--- NOTE | 2021-05-26 10:12 | P.DS ---
Providers Date of admission: 05/21/21 18:38 Expected date of discharge: 05/26/21 Attending physician: Tico Hartley Consults: 05/21/21 18:38 Consult Physician Urgent Consulting Provider: Brandi Sebastian Consult Reason/Comments: Medical clearance for surgery Do you want consulting provider notified?: Yes 05/22/21 10:26 Consult Physician Routine Consulting Provider: Mikael Bullock Consult Reason/Comments: abn ekg, preop clearance, cad Do you want consulting provider notified?: Yes 05/24/21 17:20 Consult Physician Routine Consulting Provider: Tana Bowen Consult Reason/Comments: ESBL UTI Do you want consulting provider notified?: Yes Primary care physician: Brandi Sebastian - Discharge Diagnosis(es) (1) Right hip pain Current Visit: Yes Status: Acute (2) Dementia Current Visit: Yes Status: Resolved (3) Osteoporosis Current Visit: Yes Status: Acute (4) Coronary artery disease Current Visit: Yes Status: Acute (5) Chronic low back pain Current Visit: Yes Status: Acute (6) Fracture, intertrochanteric, right femur Current Visit: Yes Status: Acute (7) Hyperlipidemia Current Visit: No Status: Acute (8) Urinary tract infection Current Visit: Yes Status: Acute Hospital Course: This is a pleasant 85-year-old female who presented with right intertrochanteric hip fracture displaced and angulated. She is admitted for further treatment evaluation. She will underwent a right hip intramedullary nail fixation for her right intertrochanteric hip fracture. The patient tolerated the procedure well and did well postoperatively. She has remained nonweightbearing on the right lower extremity. She does have some pain at the right hip but her pain is better postoperatively and was prior to surgical intervention. Condition on day of discharge stable. Patient is currently being treated for urinary tract infection. Lees catheter has been discontinued. She has been voiding without difficulty. We did discuss patient would need clearance from other medical providers prior to discharge. Patient is currently planned to be discharged to the [facility] in [place], [place]. Patient was cleared preoperatively for surgery by medicine and cardiology. Patient currently denies any nausea, vomiting, fever, or chills. Patient is eating and voiding freely without difficulty. Patient may shower Optifoam dressing intact. Patient may remove Optifoam dressing in 3 days and shower without a dressing at that time. Patient will remain nonweightbearing on the right lower extremity. She may work with physical therapy and increase her mobility and transfers. MAPS has been reviewed today, 05/26/2021, with an Overall Overdose Risk Score of 260. A prescription has been written for Ultram 50 mg 1 tablet every 6 hours as needed for pain, dispensed #28. Patient given a prescription for aspirin 325 mg 1 tab twice a day, dispensed #60, for postoperative anticoagulation. Aspirin 81 mg twice a day is listed on the patient's home medication list and should be held until the completion of the prescription for aspirin 325 mg. Medicine will plan to complete the med rec prior to discharge. Patient's other medical diagnoses include urinary tract infection, dementia, o steoporotic bone, coronary artery disease, hyperlipidemia, chest pain/angina, and chronic low back pain. Physical Exam Intramedullary [place] for Intertrochanteric Fracture: Status post surgical day number 3 Patient is examined lying in bed Patient is awake and alert, and oriented 3 Vital signs stable Good chest excursion with deep inspiration and expiration No signs or symptoms of DVT; no calf pain Lower extremity cuffs not currently in place bilaterally Dressing of the right hip is clean, dry, and intact; no erythema, purulence, or signs of infection No pain with palpation over the surgical sites Full range of motion of ankles bilaterally Dorsiflexion, plantarflexion, and extensor hallucis longus positive sustained bilaterally Neurovascularly intact bilateral lower extremities Procedures: Right intramedullary nail fixation for right intertrochanteric hip fracture Patient Condition at Discharge: Stable Plan - Discharge Summary Discharge Rx Participant: Yes New Discharge Prescriptions: New traMADol HCl [Ultram] 50 mg PO Q6H PRN #28 tab PRN Reason: Pain Aspirin 325 mg PO BID #60 tab No Action Cholecalciferol [Vitamin D3 (25 Mcg = 1000 Iu)] 25 mcg PO DAILY@0800 Levothyroxine Sodium [Synthroid] 50 mcg PO DAILY@0600 Docusate [Colace] 100 mg PO BID HYDROcodone/APAP 5-325MG [[place] 5-325] 1 tab PO Q6H PRN PRN Reason: Pain Acetaminophen Tab [Tylenol] 650 mg PO Q8H PRN PRN Reason: Pain polyethylene glycoL 3350 [Miralax] 17 gm PO BID Ciprofloxacin HCl [Cipro] 250 mg PO Q12H Aspirin 81 mg PO BID Lidocaine [Lidoderm 5% Patch] 1 patch TRANSDERM DAILY Famotidine [Pepcid] 20 mg PO Q12H amLODIPine [Norvasc] 10 mg PO DAILY@0800 Discharge Medication List Cholecalciferol [Vitamin D3 (25 Mcg = 1000 Iu)] 25 mcg PO DAILY@0800 01/24/15 [History] Docusate [Colace] 100 mg PO BID 01/09/18 [History] Levothyroxine Sodium [Synthroid] 50 mcg PO DAILY@0600 01/09/18 [History] Acetaminophen Tab [Tylenol] 650 mg PO Q8H PRN 05/21/21 [History] Aspirin 81 mg PO BID 05/21/21 [History] Ciprofloxacin HCl [Cipro] 250 mg PO Q12H 05/21/21 [History] Famotidine [Pepcid] 20 mg PO Q12H 05/21/21 [History] HYDROcodone/APAP 5-325MG [[place] 5-325] 1 tab PO Q6H PRN 05/21/21 [History] Lidocaine [Lidoderm 5% Patch] 1 patch TRANSDERM DAILY 05/21/21 [History] amLODIPine [Norvasc] 10 mg PO DAILY@0800 05/21/21 [History] polyethylene glycoL 3350 [Miralax] 17 gm PO BID 05/21/21 [History] Aspirin 325 mg PO BID #60 tab 05/26/21 [Rx] traMADol HCl [Ultram] 50 mg PO Q6H PRN #28 tab 05/26/21 [Rx] Follow up Appointment(s)/Referral(s): Mikael Bullock MD [STAFF PHYSICIAN] - 2 Weeks Brandi Sebastian MD [Primary Care Provider] - 1-2 days [facility], [NON-STAFF] - As Needed Martínez Pryor PAC [PHYSICIAN EDUCATIONAL AUDIOLOGIST] - 2 Weeks (Patient may follow-up with Martínez Pryor PA-C or Dr. Fritz Hartley at [facility] in 2-3 weeks following discharge. ) Activity/Diet/Wound Care/Special Instructions: 1. Patient to remain nonweightbearing on the right lower extremity; patient to remain nonweightbearing over the next 6 weeks postoperatively 2. Patient should work with physical therapy to increase mobility and transfers 3. Keep dressings over the right hip clean, dry, and intact 4. Patient may shower with dressing intact over the right hip and thigh. Dressings may be removed with the right hip in 3 days if surgical site remained dry 5. May apply ice for comfort support over the surgical sites as needed 6. Take medications as prescribed Discharge Disposition: TRANSFER TO SNF/ECF
--- NOTE | 2021-05-26 13:30 | PN ---
PROGRESS NOTE DATE OF SERVICE: 05/26/2021 REASON FOR FOLLOWUP: ESBL E coli UTI infection. INTERVAL HISTORY: Patient is afebrile. The patient is breathing comfortably. Has been complaining of pain to the right hip pain. No chest pain, shortness of breath or cough. No abdominal pain or diarrhea. PHYSICAL EXAMINATION: Blood pressure 120/68 with a pulse of 70, temperature 97.6. She is 96% on room air. General description is an elderly female lying in bed in no distress. Respiratory system: Unlabored breathing, clear to auscultation anteriorly. Heart S1, S2. Regular rate and rhythm. Abdomen soft, no tenderness. LABS: No new labs have been obtained today. DIAGNOSTIC IMPRESSION AND PLAN: Patient with ESBL E coli urinary tract infection, possible cystitis. Recommend short course of Invanz 1 g daily on discharge and close outpatient followup. MMODL / IJN: [id number] /
[2021-05-26 14:21] VITALS: BP 106/66; PULSE 84; RESP 17; TEMP 97.3
--- NOTE | 2021-05-26 14:25 | P.PN ---
Subjective Progress Note Date: 05/26/21 This is an 82-year-old female patient of Dr. 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 Granados, hypothyroidism, irritable bowel syndrome, gastritis. She currently resides at [facility] off [address], for therapy. However patient has fallen down, and subsequently fractured her right intertrochanteric, displaced femur fracture. She does have chronic back pain, and uses a walker for community ambulation. Patient is confused, and cannot recollect any details of the events, she is currently being treated for urinary tract infection, using ciprofloxacin. EKG was reviewed, normal sinus rhythm heart rate 71, there is T-wave inversions in leads V3 to V6, chest x-ray shows no acute disease, sodium 133, creatinine 0.8, urine is turbid, over 182 wbc, MCV elevated at 100.8, WBC count of 6.0. INR of 1.0 he was seen by Dr. Hartley, for which they have recommended IM nailing, I requested cardiology see her, secondary to abnormal EKG, [employer] proBNP requested, and troponin requested. Patient does not verbalize any chest pain shortness of breath, however she is disoriented today, as to place, she thinks she is in her old condo. And is a new baseline for her. Pain medication from home is Effort 5, no CPK is available for review, she is on not on statins significant secondary to significant statin intolerances, check for rhabdomyolysis, cre atinine is stable 05/23: Patient is cleared by cardiology, echocardiogram shows EF of over 55%, without any aortic stenosis, normal left ventricle systolic pressure, patient has no complaints today, except that she can't wait for surgery to be done to 4:00. Patient's updated regarding healing time, no nausea no vomiting, IV Rocephin started as the patient still has significant pyuria despite Cipro, awaiting cultures. Cipro discontinued. No fever no chills, folic catheter draining clear urine, patient's on DVT prophylaxis this time 05/24 patient examined bedside. Appears to be confused would like to go home to take care of her family. She does remember her date and is nausea is in the [facility] but does fluctuate from the conversation. Patient is alert and converses without drowsiness her aggressive behavior. Unclear if it if patient has underlying history of dementia. Patient is presently in delirium vitals are stable. No recent labs to compare. Pain is under control. Urinalysis is ordered to rule out UTI. Remeron initiated 7.5 mg to help patient sleep at night 05/25 patient examined bedside. He appears to be pleasantly confused. She does not know where she is and what the month his. UA suggestive of infection patient does have ESBL. Initiated ertapenem1 gm iv dialy. Patient is disease consulted. Labs are reviewed patient's hemoglobin has dropped to 7.2 MCV 1-102 platelets 510. Iron studies ordered. Vitals are stable. Plan for IP versus subacute rehab on Wednesday patient examined bedside. She appears to be a pleasantly confused. She does not know why she is in the hospital or if she needs to follow any restrictions due to hip fracture. Patient denies any chest pain or breathing or difficulty with abdominal pain and nausea vomiting. Vitals are stable with temp is 97.6 pulse 70 respiratory rate 2819 pressure 120/68 no labs from today. Hemo globin 7.2 yesterday. His stat CBC ordered before patient can be discharged to make sure she does not need transfusion. Iron sulfate recommended twice a day. Patient to continue Remeron in the alf home and follow with orthopedics for the hip fracture. She is to be no weightbearing for 6 weeks. Patient is a high risk of fall with ongoing delirium and underlying dementia and wouldn't benefit from alf facility - Constitutional General appearance: Present: cooperative, no acute distress - EENT Eyes: Present: EOMI, PERRLA - Neck Neck: Present: normal ROM - Respiratory Respiratory: bilateral: CTA, negative: diminished, dullness, rales - Cardiovascular Rhythm: regular Heart sounds: normal: S1, S2 Abnormal Heart Sounds: Positive for 2/6 systolic murmur, diastolic murmur, rub, S3 Gallop, S4 Gallop, click, other - Gastrointestinal General gastrointestinal: Present: normal bowel sounds, soft - Integumentary Integumentary: Present: normal - Neurologic Neurologic: Present: No sensory deficit - Musculoskeletal Musculoskeletal: Present: strength equal bilaterally and dressing intact on the right hip no superficial bruising no surrounding inflammation or erythema noted neurovascular status intact bilateral lower extremity - Psychiatric Psychiatric: Present: A&O x's 1, appropriate affect, intact judgment & insight Assessment and plan 1. Postoperative day 3 Right intertrochanteric displaced fracture, status post intertrochanteric hip screw on 05/23 Dr. Hartley, pain control per primary to incentive spirometry for pulmonary prophylaxis nonweightbearing for 6 weeks 2. CAD with prior CABG in 2014, on amlodipine 10 mg daily, aspirin 81 mg daily, not on statin any beta mima, ALLERGIES are noted 3. Acute urinary tract infection, with delirium, Cipro 250 mg twice a day did not improve pyuria, culture suggestive of ESBL switched to ertapenem. Infectious disease consulted 4. Acute delirium Remeron initiated 7.5 at bedtime. Likely secondary to pain medication and underlying UTI 5. Hyperlipidemia. With known CAD risk factors, has significant statin intolerance 6, chronic pain, secondary to lumbar disc disease, on Effort 5325 every 6 when necessary lidocaine patch, 7. History of gastritis. Protonix. 8. Osteoarthritis mild in both hands. 9. Irritable bowel syndrome stable at this time. 10. Benign positional proximal vertigo in remission. 11. Hypothyroidism. Continue current dose of Synthroid. 12. Acute blood loss anemia likely expected outcome of surgery CBC ordered ferrous sulfate twice a day. If hemoglobin less than 7 may need transfusion 13. GI prophylaxis will continue with current PPI. 14. DVT prophylaxis. Patient is on heparin Disposition discharged to alf facility today Objective - Vital Signs Vital signs: Vital Signs Temp 97.6 F 05/26/21 08:03 Pulse 70 05/26/21 08:03 Resp 19 05/26/21 08:03 BP 120/68 05/26/21 08:03 Pulse Ox 95 05/26/21 09:31 Intake & Output 05/25/21 05/26/21 05/26/21 18:59 06:59 18:59 Output Total 700 Balance -700 Output: Urine 700 Other: Voiding Method Indwelling Catheter Diaper Diaper Incontinent Incontinent # Voids 1 - Labs CBC & Chem 7: 05/25/21 06:40 05/25/21 06:40 Labs: Abnormal Lab Results - Last 24 Hours (Table) 05/25/21 Range/Units 13:08 Iron 18 L (50-170) ug/dL TIBC 204 L (228-460) ug/dL % Saturation 8.82 L (12.00-45.00) Microbiology - Last 24 Hours (Table) 05/24/21 23:15 Urine Culture - Final Urine,Voided
[2021-05-26 14:59] LABS: HCT 27.4 % (34.0-46.0); HGB 8.8 gm/dL (11.4-16.0); Hypochromasia Slight; MCHC 32.1 g/dL (31.0-37.0); MCV 102.8 fL (80.0-100.0); Macrocytosis Slight; Platelet Count 671 k/uL (150-450); RBC 2.66 m/uL (3.80-5.40); RDW 14.3 % (11.5-15.5); WBC 6.2 k/uL (3.8-10.6)
== END 2021-05-26 15:50 | DRG 481 ==
LOC: EC 14:26 → 4SSUR 18:38
PROVIDERS: ADMIT Orthopaedic Surgery Orthopaedic Surgery of the Spine; ATTEND Orthopaedic Surgery Orthopaedic Surgery of the Spine
PROC: 0QS606Z Reposition Right Upper Femur with Intramedullary Internal Fixation Device, Open Approach (ICD-10-PCS; principal; 2021-05-23 09:45)
DX: S72.141A Displaced intertrochanteric fracture of right femur, initial encounter for closed fracture (principal); N39.0 Urinary tract infection, site not specified; D62 Acute posthemorrhagic anemia; Z16.12 Extended spectrum beta lactamase (ESBL) resistance; R31.9 Hematuria, unspecified; W19.XXXA Unspecified fall, initial encounter; G89.29 Other chronic pain; M54.5 Low back pain; E78.5 Hyperlipidemia, unspecified; F03.90 Unspecified dementia, unspecified severity, without behavioral disturbance, psychotic disturbance, mood disturbance, and anxiety; B96.20 Unspecified Escherichia coli [E. coli] as the cause of diseases classified elsewhere; Z79.890 Hormone replacement therapy; Z79.82 Long term (current) use of aspirin; Z88.5 Allergy status to narcotic agent; Z88.8 Allergy status to other drugs, medicaments and biological substances; Z88.0 Allergy status to penicillin; Z88.1 Allergy status to other antibiotic agents; Z82.49 Family history of ischemic heart disease and other diseases of the circulatory system; Z80.49 Family history of malignant neoplasm of other genital organs; Z95.1 Presence of aortocoronary bypass graft; M81.0 Age-related osteoporosis without current pathological fracture; E03.9 Hypothyroidism, unspecified; K58.9 Irritable bowel syndrome, unspecified; H81.10 Benign paroxysmal vertigo, unspecified ear; I10 Essential (primary) hypertension; I25.119 Atherosclerotic heart disease of native coronary artery with unspecified angina pectoris; I25.2 Old myocardial infarction; M19.90 Unspecified osteoarthritis, unspecified site; Z79.899 Other long term (current) drug therapy; Z91.81 History of falling; M51.9 Unspecified thoracic, thoracolumbar and lumbosacral intervertebral disc disorder
CPT/HCPCS: 36415; 71045; 73501; 73502; 80048; 80053; 81001; 82728; 83540; 83550; 83605; 83735; 83880; 84484; 85025; 85027; 85610; 85730; 86850; 86900; 86901; 87077; 87086; 87186; 88304; 93005; 93306; 94760; 96360; 96361; 99285